=== PATIENT | female | born 1960 | race Caucasian/White ===

== ENCOUNTER → 2018-02-23 14:40 | Outpatient (CLI) | payer OTHER, MEDICAID, SELFPAY ==
[2018-02-23 15:28] LABS: Add Manual Diff / Slide Review NO; Basophils Percent Auto 0.8 % (0-2); Eosinophils Percent Auto 6.4 % (2-4); Hematocrit 40.6 % (36-46); Hemoglobin 13.8 g/dL (12.0-16.0); Lymphocytes Percent Auto 18.8 % (25-40); Mean Corpuscular Hemoglobin 29.7 PG (26-34); Mean Corpuscular Volume 87.4 fL (80-100); Monocytes Percent Auto 8.1 % (3-14); Neutrophils Absolute Auto 4300 /uL (3000-5900); Neutrophils Percent Auto 65.9 % (50-75); Platelet Count 302 X10^3/uL (150-400); Red Blood Cell Count 4.65 X10^6/uL (4.0-5.2); Red Cell Distribution Width 13.2 % (11.6-14.8); White Blood Cell Count 6.5 X10^3/uL (4.5-11.0)
[2018-02-23 16:05] LABS: Free T3, Triiodothyronine Free 3.57 pg/mL (2.77-5.27); Free T4, Direct Thyroxine 1.08 ng/dL (0.78-2.19)
[2018-02-23 16:19] LABS: Thyroid Stimulating Hormone 1.02 uIU/mL (0.47-4.68)
== END ==
PROVIDERS: Family Provider Family Medicine; PCP Family Medicine; Visit Provider Nurse Practitioner Family
DX: F32.9 Major depressive disorder, single episode, unspecified (principal); R94.6 Abnormal results of thyroid function studies
CPT/HCPCS: 36415; 84439; 84443; 84481; 85025

== ENCOUNTER → 2018-03-29 12:08 | Outpatient (CLI) | payer OTHER, MEDICAID, SELFPAY ==
[2018-03-29 14:11] LABS: Thyroid Stimulating Hormone 0.98 uIU/mL (0.47-4.68)
== END ==
PROVIDERS: Family Provider Family Medicine; PCP Family Medicine; Visit Provider Family Medicine
DX: R94.6 Abnormal results of thyroid function studies (principal)
CPT/HCPCS: 36415; 84443

== ENCOUNTER → 2018-04-25 08:35 | Outpatient (CLI) | payer OTHER, MEDICAID, SELFPAY ==
[2018-04-25 10:22] LABS: Alanine Aminotransferase 18 IU/L (9-52); Albumin 3.8 g/dL (3.5-5.0); Albumin Globulin Ratio 1.6 (1.0-2.8); Alkaline Phosphatase 70 U/L (38-126); Aspartate Aminotransferase 18 IU/L (14-36); BUN Creatinine Ratio 21.4 (6-22); Bilirubin Total 0.4 mg/dL (0.2-1.3); Blood Urea Nitrogen 15 mg/dL (7-17); Calcium 9.2 mg/dL (8.4-10.2); Carbon Dioxide 27 mmol/L (22-32); Chloride 102 mmol/L (98-107); Estimated Glomerular Filt Rate > 60.0 mL/min (>60); Globulin 2.4 g/dL (1.7-4.1); Glucose 89 mg/dL (70-100); HEMOLYSIS < 15 (0-50); Potassium 4.4 mmol/L (3.4-5.1); Sodium 138 mmol/L (137-145); Total Protein 6.2 g/dL (6.3-8.2)
== END ==
PROVIDERS: PCP Family Medicine; Visit Provider Family Medicine
DX: G43.909 Migraine, unspecified, not intractable, without status migrainosus (principal)
CPT/HCPCS: 36415; 80053

== ENCOUNTER 2018-06-11 23:47 | Emergency (ER) | payer OTHER, MEDICAID, SELFPAY ==
--- NOTE | 2018-06-11 23:51 | DI.RAD.S_ITS ---
PROCEDURE: XR CHEST 1V INDICATIONS: chest pain TECHNIQUE: One view of the chest was acquired. COMPARISON: None. FINDINGS: Surgical changes and devices: None. Lungs and pleura: No pleural effusions or pneumothorax. Lungs are clear. Mediastinum: Mediastinal contours appear normal. Heart size is normal. Bones and chest wall: No suspicious bony lesions. Overlying soft tissues appear unremarkable. IMPRESSION: No acute cardiopulmonary disease. Dictated by: Ree Berumen M.D. on 06/12/2018 at 8:04 Approved by: Ree Berumen M.D. on 06/12/2018 at 8:04
[2018-06-12] VITALS (12 sets, daily range): BP systolic 110–130; BP diastolic 59–68; PULSE 73–82; RESP 10–18; TEMP 36.7; O2SAT 95–100; BMI 30.7
--- NOTE | 2018-06-12 00:07 | ED.CHESTPAIN ---
HPI - Chest Pain General Stated Complaint: Chest pain Time Seen by Provider: 06/11/18 23:53 Source: patient and EMS Mode of arrival: EMS Limitations: no limitations History of Present Illness HPI narrative: 58-year-old nonsmoker presents with chief complaint of some episodes of chest and right shoulder pain off and on since 5:00 p.m.. She is not actively having any pain and she denies provocation, palliation of her pain. She denies associated symptoms such as dizziness, weakness or lightheadedness. She does have some type of cardiac disease and has had heart catheterization in [place] a few years ago that was unremarkable. In the end it was thought that she had some ?electrical ?problems with her heart and has been on beta blockers and calcium channel blockers for control. She denies nausea, vomiting MD complaint: chest pain Onset (ago): hour(s) Duration: intermittent Pain location: right chest Severity: mild Quality: sharp Relieving factors: nothing Exacerbating factors: nothing Treatments prior to arrival chest pain: aspirin Related Data Home Medications Medication Instructions Recorded Confirmed naproxen sodium [Aleve] 220 mg PO PRN PRN #0 07/28/17 05/31/18 fexofenadine 180 mg PO QDAY #0 11/01/17 05/31/18 albuterol sulfate HFA 90 1 puff INHALATION Q6-8H PRN 03/06/18 05/31/18 mcg/actuation aerosol inhaler inhalation Previous Rx's Medication Instructions Recorded sennosides [senna] 8.6 mg PO BID #90 tab 09/23/16 loperamide 4 mg PO QDAY PRN #60 cap 11/02/17 fluticasone 50 mcg/actuation nasal 2 spray INTRANASAL QDAY #1 bot 03/15/18 spray,suspension lisinopril 10 1 tab PO QDAY #90 tab 03/27/18 mg-hydrochlorothiazide 12.5 mg tablet omeprazole 20 mg capsule,delayed 20 mg PO Q DAY #90 cap 03/27/18 release propranolol 40 mg tablet 40 mg PO BID #60 tab 03/27/18 clonidine HCl 0.1 mg tablet 0.1 mg PO .COMPLEX #21 tab 04/11/18 bupropion HCl SR 150 mg tablet,12 150 mg PO BID #60 tab 04/24/18 hr sustained-release butorphanol tartrate 10 mg/mL 1 spray INTRANASAL Q4-6H #2.5 ml 04/24/18 nasal spray cyclobenzaprine 10 mg tablet 10 mg PO TID #90 tab 04/24/18 promethazine 25 mg tablet 25 mg PO BID #60 tab 04/24/18 budesonide 180 mcg/actuation 2 inhalation INHALATION BID #1 each 04/26/18 breath activated powder inhaler oxycodone 5 mg tablet 5 mg PO TID PRN #90 tab 05/16/18 alprazolam 0.25 mg tablet 0.25 mg PO TID PRN #75 tab 05/18/18 alprazolam 0.25 mg tablet 0.25 mg PO TID PRN #75 tab 06/01/18 alprazolam 0.25 mg tablet 0.25 mg PO TID PRN #75 tab 06/01/18 alprazolam 0.25 mg tablet 0.25 mg PO TID PRN #75 tab 06/01/18 estradiol 0.5 mg tablet 0.5 mg PO DAILY #90 tab 06/01/18 medroxyprogesterone 2.5 mg tablet 2.5 mg PO DAILY #90 tab 06/01/18 oxycodone 5 mg tablet 5 mg PO TID PRN #90 tab 06/01/18 oxycodone 5 mg tablet 5 mg PO TID PRN #90 tab 06/01/18 oxycodone 5 mg tablet 5 mg PO TID PRN #90 tab 06/01/18 verapamil ER (SR) 240 mg 240 mg PO QPM #90 tab 06/11/18 tablet,extended release Allergies Allergy/AdvReac Type Severity Reaction Status Date / Time gluten [GLUTEN] Allergy Severe severe Verified 05/31/18 16:07 stomach cramps and diahrrea adhesive Allergy Mild RASH Verified 05/31/18 16:07 cephalexin [CEPHALEXIN] Allergy Mild RASH Verified 05/31/18 16:07 latex [LATEX] Allergy Mild RASH Verified 05/31/18 16:07 ibuprofen [IBUPROFEN] Allergy Unknown STOMACH Verified 05/31/18 16:07 ACHE sumatriptan [From IMITREX] AdvReac Intermediate Rapid Verified 05/31/18 16:07 heart rate. gabapentin [GABAPENTIN] AdvReac Mild NEURO/SPEECH Verified 05/31/18 16:07 IMPAIRMENT [facility] Medical History Post menopausal syndrome (Chronic) DJD (degenerative joint disease), lumbar (Chronic) Irritable bowel syndrome (Chronic) Uncomplicated opioid dependence (Chronic) Hyperlipidemia (Chronic Unknown) Hypertension (Chronic Unknown) Constipation (Chronic Unknown) Celiac disease (Chronic ~2006) Asthma (Chronic ~2015) Depression (Chronic Unknown) Carpal tunnel syndrome on right (Chronic Unknown) Anxiety (Chronic ~1979) Generalized headaches (Chronic 2013) Migraines (Chronic 1979) Osteoporosis (Chronic Unknown) Osteopenia (Chronic Unknown) Chronic back pain (Chronic 2007) Depression (Chronic) Allergy (Chronic Unknown) Anemia (Chronic Unknown) Diverticulitis (Chronic Unknown) Scoliosis (Chronic 2006) Tachycardia (Chronic 2009) Tennis elbow (Chronic Unknown) Chickenpox (Resolved Unknown) Dysphagia (Resolved Unknown) Endometriosis (Resolved 1986) Genital warts (Resolved 1979) Knee pain, right (Resolved ~2013) Measles (Resolved Unknown) Mumps (Resolved Unknown) Nephritis (Resolved 1967) Social History Smoking Status: Never smoker alcohol intake: current (Rarely) substance use type: does not use Exam Narrative Exam Narrative: GENERAL: T 58-year-old female resting comfortably in no obvious distress HEAD: Atraumatic. Normocephalic. No temporal or scalp tenderness. EYES: Pupils equal round and reactive. Extraocular motions intact. No scleral icterus. No injection or drainage. ENT: Nose without bleeding, purulent drainage or septal hematoma. Throat without erythema, tonsillar hypertrophy or exudate. Uvula midline. Airway patent. NECK: Trachea midline. No JVD or lymphadenopathy. Supple, nontender, no meningeal signs. CARDIOVASCULAR: Regular rate and rhythm without murmurs, gallops, or rubs. No reproducible chest pain RESPIRATORY: Clear to auscultation. Breath sounds equal bilaterally. No wheezes, rales, or rhonchi. GASTROINTESTINAL: Abdomen soft, non-tender, nondistended. No hepato-splenomegaly, or palpable masses. No guarding. EXTREMITIES: No clubbing, cyanosis, or edema. No joint tenderness, effusion, or edema noted. BACK: Nontender without deformity or crepitance. No flank tenderness. NEURO: AOx3. SKIN: No rash or erythema. Initial Vital Signs Initial Vital Signs: Vital Signs Temperature 98.1 F 06/12/18 00:07 Pulse Rate 78 06/12/18 00:07 Respiratory Rate 18 06/12/18 00:07 Blood Pressure 114/66 06/12/18 00:07 Pulse Oximetry 100 06/12/18 00:07 Scores HEART Score Heart Score history: Slightly Suspicious Heart Score EKG: Normal Heart Score Age: 45-64 years old Heart Score risk factors: 1-2 risk factors Heart Score troponin: < or = to normal limit Heart Score Total: 2 Course Orders Ordered: ED Orders 06/11/18 23:51 XR chest 1V Stat EKG-12 Lead Stat 06/11/18 23:58 Complete Blood Count AUTO DIFF Stat Comprehensive Metabolic Panel Stat Lipase Stat Troponin & CK Cardiac Panel Stat 06/12/18 01:04 CT angio chest PE protocol Stat 06/12/18 02:47 EKG-12 Lead Stat 06/12/18 02:55 Troponin I Stat Sodium Chloride (Normal Saline 0.9%) 1,000 mls @ 150 mls/hr IV CONT ANNI Last Admin: 06/12/18 00:17 Dose: 150 mls/hr Nitroglycerin (Nitrostat) 0.4 mg SL [id number] PRN PRN Reason: Chest Pain Last Admin: 06/12/18 00:35 Dose: 0.4 mg Admin: 06/12/18 00:29 Dose: 0.4 mg Discontinued Medications Aspirin (Aspirin Chew) 324 mg PO NOW ONE Stop: 06/11/18 23:52 Last Admin: 06/12/18 00:57 Dose: Vital Signs - 8 hr 06/12/18 00:07 06/12/18 00:25 06/12/18 00:28 Temperature 98.1 F Pulse Rate 78 76 81 Respiratory Rate 18 11 L Blood Pressure 114/66 Blood Pressure [Left Arm] 114/66 116/68 Pulse Oximetry 100 95 06/12/18 00:29 06/12/18 00:30 06/12/18 00:34 Temperature Pulse Rate 81 82 Respiratory Rate Blood Pressure 116/68 130/66 Blood Pressure [Left Arm] 130/66 Pulse Oximetry 06/12/18 00:35 06/12/18 00:36 06/12/18 01:24 Temperature Pulse Rate 74 73 76 Respiratory Rate 10 L Blood Pressure 110/64 Blood Pressure [Left Arm] 110/64 113/60 114/65 Pulse Oximetry 97 06/12/18 03:43 06/12/18 03:44 Temperature Pulse Rate 73 77 Respiratory Rate 15 Blood Pressure 113/60 Blood Pressure [Left Arm] 118/59 L Pulse Oximetry 100 MDM - Chest Pain Differential Diagnosis Likely pneumothorax, stable angina, unstable angina pectoris, atypical chest pain, st elevation myocardial infarction, costochondritis, chest pain and biliary colic Medical Records Data Attestation: I reviewed the patient's medical records. Lab Data Attestation: I reviewed the patient's lab results. Result diagrams: 06/11/18 23:58 06/11/18 23:58 Lab Results 06/11/18 06/11/18 06/12/18 Range/Units 23:58 23:58 02:55 WBC 6.8 (4.5-11.0) X10^3/uL RBC 4.20 (4.0-5.2) X10^6/uL Hgb 12.4 (12.0-16.0) g/dL Hct 35.8 L (36-46) % MCV 85.3 (80-100) fL MCH 29.5 (26-34) PG MCHC 34.6 (30-36) % RDW 13.6 (11.6-14.8) % Plt Count 299 (150-400) X10^3/uL Neut % (Auto) 59.6 (50-75) % Lymph % (Auto) 24.6 L (25-40) % [place] % (Auto) 9.8 (3-14) % Eos % (Auto) 5.2 H (2-4) % Baso % (Auto) 0.8 (0-2) % Neut # (Auto) 4000 (3128-6665) /uL Sodium 134 L (137-145) mmol/L Potassium 4.1 (3.4-5.1) mmol/L Chloride 97 L (98-107) mmol/L Carbon Dioxide 29 (22-32) mmol/L BUN 17 (7-17) mg/dL Creatinine 0.80 (0.52-1.04) mg/dL Estimated GFR > 60.0 (>60) mL/min BUN/Creatinine Ratio 21.3 (6-22) Glucose 83 (70-100) mg/dL Calcium 9.2 (8.4-10.2) mg/dL Total Bilirubin 0.3 (0.2-1.3) mg/dL AST 16 (14-36) IU/L ALT 22 (9-52) IU/L Alkaline Phosphatase 76 (38-126) U/L Total Creatine Kinase 31 (30-135) U/L CK-MB (CK-2) TNP CK-MB (CK-2) Rel Index TNP Troponin I < 0.012 < 0.012 (0.01-0.034) ng/mL Total Protein 6.6 (6.3-8.2) g/dL Albumin 3.9 (3.5-5.0) g/dL Globulin 2.7 (1.7-4.1) g/dL Albumin/Globulin Ratio 1.4 (1.0-2.8) Lipase 33 (23-300) U/L ECG Data Attestation: I personally reviewed and interpreted this ECG as follows: Prior ECG tracings: not available for review Interpretation: EKG is normal sinus rhythm and free of any signs of ischemia or ectopy. EKG 2., unchanged MDM Narrative Medical decision making narrative: 1. [place] considered but EKG is remain normal, patient remains asymptomatic, troponins x2 are unchanged, heart score of to dictates outpatient workup appropriate 2. PE/dissection considered but imaging is normal 3. PTX considered but imaging is normal 4. Biliary disease considered, but not significant RUQ pain and labs are not indicative of this disease process Discharge Plan Departure Patient Disposition: Home Clinical Impression: Atypical chest pain Instructions: DI for Atypical Chest Pain Activity Restrictions/Additional Instructions: *You have been diagnosed with [ atypical chest pain ] *What to do: *Take medications as directed *Follow up with your primary care provider in 2-3 days, call for an appointment. Let them know you were seen in the Emergency Department and that we ask that you be seen in follow up *Return to ER if you should have any new, worsening or concerning symptoms Prescriptions: No Action butorphanol tartrate 10 mg/mL spray,non-aerosol 1 spray Intranasal Q4-6H Qty: 2.5 RF: 5 promethazine 25 mg tablet 25 mg PO BID Qty: 60 RF: 5 cyclobenzaprine 10 mg tablet 10 mg PO TID Qty: 90 RF: 5 bupropion HCl 150 mg tablet extended release 12 hr 150 mg PO BID Qty: 60 RF: 5 alprazolam 0.25 mg tablet 0.25 mg PO TID PRN (Reason: anxiety) Qty: 75 RF: 0 alprazolam 0.25 mg tablet 0.25 mg PO TID PRN (Reason: anxiety) Qty: 75 RF: 0 alprazolam 0.25 mg tablet 0.25 mg PO TID PRN (Reason: anxiety) Qty: 75 RF: 0 oxycodone 5 mg tablet 5 mg PO TID PRN (Reason: pain) Qty: 90 RF: 0 oxycodone 5 mg tablet 5 mg PO TID PRN (Reason: pain) Qty: 90 RF: 0 oxycodone 5 mg tablet 5 mg PO TID PRN (Reason: pain) Qty: 90 RF: 0 estradiol 0.5 mg tablet 0.5 mg PO DAILY Qty: 90 RF: 3 medroxyprogesterone 2.5 mg tablet 2.5 mg PO DAILY Qty: 90 RF: 3 albuterol sulfate [Ventolin HFA] 90 mcg/actuation HFA aerosol inhaler 1 puff INHALATION Q6-8H PRNRF: 0 sennosides [senna] 8.6 MG tablet 8.6 mg PO BID Qty: 90 RF: 0 naproxen sodium [Aleve] 220 MG tablet 220 mg PO PRN PRNQty: 0 RF: 0 fexofenadine 180 MG tablet 180 mg PO QDAY Qty: 0 RF: 0 loperamide 2 MG capsule 4 mg PO QDAY PRNQty: 60 RF: 3 fluticasone [Flonase Allergy Relief] 50 mcg/actuation spray,suspension 2 spray Intranasal QDAY Qty: 1 RF: 1 propranolol 40 mg tablet 40 mg PO BID Qty: 60 RF: 3 lisinopril-hydrochlorothiazide [Zestoretic] 10-12.5 mg tablet 1 tab PO QDAY Qty: 90 RF: 1 omeprazole 20 mg capsule,delayed release(DR/EC) 20 mg PO Q DAY Qty: 90 RF: 0 clonidine HCl 0.1 mg tablet 0.1 mg PO .COMPLEX Qty: 21 RF: 0 budesonide [Pulmicort Flexhaler] 180 mcg/actuation aerosol powdr breath activated 2 inhalation INHALATION BID Qty: 1 RF: 5 oxycodone 5 mg tablet 5 mg PO TID PRN (Reason: pain) Qty: 90 RF: 0 alprazolam 0.25 mg tablet 0.25 mg PO TID PRN (Reason: anxiety) Qty: 75 RF: 0 verapamil 240 mg tablet extended release 240 mg PO QPM Qty: 90 RF: 0 Referrals: Xena Charles DO [Primary Care Provider] -
[2018-06-12 00:14] LABS: Add Manual Diff / Slide Review NO; Basophils Percent Auto 0.8 % (0-2); Eosinophils Percent Auto 5.2 % (2-4); Hematocrit 35.8 % (36-46); Hemoglobin 12.4 g/dL (12.0-16.0); Lymphocytes Percent Auto 24.6 % (25-40); Mean Corpuscular HGB Conc 34.6 % (30-36); Mean Corpuscular Hemoglobin 29.5 PG (26-34); Mean Corpuscular Volume 85.3 fL (80-100); Monocytes Percent Auto 9.8 % (3-14); Neutrophils Absolute Auto 4000 /uL (3000-5900); Neutrophils Percent Auto 59.6 % (50-75); Platelet Count 299 X10^3/uL (150-400); Red Cell Distribution Width 13.6 % (11.6-14.8); White Blood Cell Count 6.8 X10^3/uL (4.5-11.0)
[2018-06-12] MEDS: SODIUM CHLORIDE 0.9% 1,000 ML 150 ML IV (00:17)
[2018-06-12] MEDS: NITROGLYCERIN 0.4 MG SL TAB SL ×2 (00:29→00:35)
[2018-06-12 00:34] LABS: Alanine Aminotransferase 22 IU/L (9-52); Albumin 3.9 g/dL (3.5-5.0); Albumin Globulin Ratio 1.4 (1.0-2.8); Alkaline Phosphatase 76 U/L (38-126); Aspartate Aminotransferase 16 IU/L (14-36); BUN Creatinine Ratio 21.3 (6-22); Bilirubin Total 0.3 mg/dL (0.2-1.3); Blood Urea Nitrogen 17 mg/dL (7-17); Calcium 9.2 mg/dL (8.4-10.2); Carbon Dioxide 29 mmol/L (22-32); Chloride 97 mmol/L (98-107); Creatine Kinase 31 U/L (30-135); Estimated Glomerular Filt Rate > 60.0 mL/min (>60); Globulin 2.7 g/dL (1.7-4.1); Glucose 83 mg/dL (70-100); HEMOLYSIS < 15 (0-50); Lipase 33 U/L (23-300); Potassium 4.1 mmol/L (3.4-5.1); Sodium 134 mmol/L (137-145); Total Protein 6.6 g/dL (6.3-8.2)
[2018-06-12 00:46] LABS: Troponin I < 0.012 ng/mL (0.01-0.034)
--- NOTE | 2018-06-12 01:04 | DI.CT.S_ITS ---
PROCEDURE: CT ANGIO CHEST PE PROTOCOL INDICATIONS: Chest pain, shortness of breath TECHNIQUE: After the administration of intravenous contrast, 2 mm thick sections acquired from the pulmonary apices to the posterior costophrenic angles. 3-dimensional maximum intensity projection (MIP) coronal and sagittal reformats were then acquired through the thorax. For radiation dose reduction, the following was used: automated exposure control, adjustment of mA and/or kV according to patient size. COMPARISON: [facility], CR, XR CHEST 1V, 06/12/2018, 0:06. FINDINGS: Image quality: Excellent. Pulmonary arteries: Pulmonary arteries are normal in size, and demonstrate no intraluminal filling defects to suggest central pulmonary embolism. Lungs and pleura: Lungs are clear. No pleural effusions or pneumothorax. Central and peripheral airways are patent. Mediastinum: Heart size is normal, without pericardial effusion. No mediastinal or hilar adenopathy. Thoracic aorta is normal in caliber and enhancement. Esophagus is normal in caliber, without hiatal hernia. Bones and chest wall: No suspicious bony lesions. Ribs and thoracic spine appear intact throughout. Thyroid gland is normal. No axillary or supraclavicular adenopathy. Abdomen: Visualized upper abdominal solid organs appear normal in the early arterial phase of enhancement. IMPRESSION: No evidence for pulmonary embolism. No significant discrepancy with the silk finisher radiology preliminary report. Dictated by: Ree Berumen M.D. on 06/12/2018 at 7:26 Approved by: Ree Berumen M.D. on 06/12/2018 at 7:28
[2018-06-12 03:26] LABS: Troponin I < 0.012 ng/mL (0.01-0.034)
== END 2018-06-12 04:41 | disposition home or self-care (01) ==
PROVIDERS: Emergency Provider Emergency Medicine; Family Provider Family Medicine; PCP Family Medicine
DX: R07.89 Other chest pain (principal)
CPT/HCPCS: 36415; 71045; 71275; 80053; 82550; 82553; 83690; 84484; 85025; 93005; 96360; 96361; 99284; 99285; Q9967

== ENCOUNTER → 2020-11-17 12:53 | Outpatient (CLI) | payer OTHER, MEDICAID, SELFPAY ==
[2020-11-17 16:23] LABS: Free T3, Triiodothyronine Free 3.26 pg/mL (2.77-5.27); Free T4, Direct Thyroxine 1.01 ng/dL (0.78-2.19)
[2020-11-17 16:37] LABS: Thyroid Stimulating Hormone 1.26 uIU/mL (0.47-4.68)
== END ==
PROVIDERS: PCP Family Medicine; Referring Provider Family Medicine; Visit Provider Family Medicine
DX: R63.5 Abnormal weight gain (principal)
CPT/HCPCS: 36415; 84439; 84443; 84481

== ENCOUNTER → 2020-11-24 13:11 | Outpatient (CLI) | payer OTHER, MEDICAID, SELFPAY ==
--- NOTE | 2020-11-24 | DI.RAD.S_ITS ---
PROCEDURE: XR CERVICAL SPINE 2V OR 3V INDICATIONS: Other chronic pain TECHNIQUE: 3 view(s) of the cervical spine were acquired. COMPARISON: [facility], , CERVICAL SPINE 2 OR 3 VIEWS, 04/21/2016, 12:13. FINDINGS: Bones: No fractures or dislocations to the T1 level. The lateral masses of C1 appear intact on the odontoid view. No suspicious bony lesions. There is mild degenerative disc disease at C5-C6. Scattered facet arthropathy bilaterally, most pronounced at C5-C6 and C6-C7. Soft tissues: No prevertebral soft tissue swelling. IMPRESSION: 1. Degenerative disc and facet disease disease in cervical spine as described. Dictated by: Ree Berumen M.D. on 11/24/2020 at 14:47 Approved by: Ree Berumen M.D. on 11/24/2020 at 14:49
--- NOTE | 2020-11-24 | DI.RAD.S_ITS ---
PROCEDURE: XR THORACIC SPINE 3V INDICATIONS: Other chronic pain TECHNIQUE: 3 views of the thoracic spine were acquired. COMPARISON: [facility], , -SPINE 2-3 VIEWS, 01/08/2018, 15:50. FINDINGS: Bones: No fractures or dislocations. No suspicious bony lesions. 12 pairs of ribs are noted, and appear intact where visualized. Mild scoliosis. There is degenerative disc disease in lumbar spine, [id number] at T11-T12, and [id number] at other levels. Note is made of spinal fusion in the lower lumbar spine. Soft tissues: No paravertebral stripe thickening. IMPRESSION: 1. Mnrpinfg-ql-gdogwk degenerative disc disease in cervical spine. Dictated by: Ree Berumen M.D. on 11/24/2020 at 14:38 Approved by: Ree Berumen M.D. on 11/24/2020 at 14:40
--- NOTE | 2020-11-24 | DI.RAD.S_ITS ---
PROCEDURE: XR KNEE RT 3V INDICATIONS: Other chronic pain TECHNIQUE: 3 views of the knee were acquired. COMPARISON: [facility], , KNEE 3V RIGHT, 07/28/2017, 14:43. FINDINGS: Bones: Right knee total arthroplasty with prosthesis in anatomic alignment. No fractures or dislocations. No suspicious bony lesions. Soft tissues: Moderate joint effusion. No suspicious soft tissue calcifications. IMPRESSION: 1. Right knee arthroplasty with intact prosthesis. 2. Moderate knee joint effusion. Dictated by: Ree Berumen M.D. on 11/24/2020 at 14:40 Approved by: Ree Berumen M.D. on 11/24/2020 at 14:47
== END ==
PROVIDERS: PCP Family Medicine; Referring Provider Family Medicine; Visit Provider Family Medicine
DX: M25.561 Pain in right knee (principal); M25.361 Other instability, right knee; M25.461 Effusion, right knee; M51.34 Other intervertebral disc degeneration, thoracic region; M50.322 Other cervical disc degeneration at C5-C6 level; M47.812 Spondylosis without myelopathy or radiculopathy, cervical region; M51.36 Other intervertebral disc degeneration, lumbar region; G89.29 Other chronic pain; Z96.651 Presence of right artificial knee joint; Z98.1 Arthrodesis status
CPT/HCPCS: 72040; 72072; 73562

== ENCOUNTER 2021-02-05 11:15 | Outpatient (RCR) | payer OTHER, MEDICAID, SELFPAY ==
--- NOTE | 2020-10-26 16:45 | PT.OIE ---
Current Diagnoses Stiffness of other specified joint, not elsewhere classified (10/26/20) Spinal stenosis, lumbar region with neurogenic claudication (10/26/20) Encounter for other orthopedic aftercare (10/26/20) Arthrodesis status (10/26/20) Past Medical History (Last Reviewed 06/13/18 @ 14:22 by Xena Charles DO) Allergy (Unknown) Anemia (Unknown) Anxiety (~1979) Asthma (~2014) Carpal tunnel syndrome on right (Unknown) Celiac disease (~2005) Chickenpox (Unknown) Chronic back pain (2007) Constipation (Unknown) Depression Depression (Unknown) Diverticulitis (Unknown) DJD (degenerative joint disease), lumbar Dysphagia (Unknown) Endometriosis (1986) Generalized headaches (2013) Genital warts (1979) Hyperlipidemia (Unknown) Hypertension (Unknown) Irritable bowel syndrome Knee pain, right (~2013) Measles (Unknown) Migraines (1979) Mumps (Unknown) Nephritis (1967) Osteopenia (Unknown) Osteoporosis (Unknown) Post menopausal syndrome Scoliosis (2006) Tachycardia (2009) Tennis elbow (Unknown) Uncomplicated opioid dependence Past Surgical History (Last Reviewed 06/13/18 @ 14:22 by Xena Charles DO) Hx of parotidectomy (1984) S/P lumbar fusion Status post appendectomy Status post biopsy of kidney (1967) Status post delivery Visit Care Team Role Provider Type Puma Mendez MD Primary Care Provider Non-Staff Specialty: Family Practice Address: [address] [place] [address], [address], [place], [address] Email: Sherine Santos PA-C Attending Provider Non-Staff Referring Provider Specialty: General Surgery Address: [address] [place] [address] [id number], [place], [address] Email: Physical Therapy Initial Evaluation PT-OP-A Visit Information Start: 10/26/20 17:45 Freq: Status: Active Protocol: Document 10/26/20 16:10 DCW (Rec: 10/26/20 17:55 DCW [id number]) Out-Patient Physical Therapy Visit Information Visit Information Visit Type Initial Evaluation Visit Start Time 16:10 Visit Stop Time 16:45 Total Visit Minutes 35 Visit Number 1 Number of SALES OPERATIONS MANAGER Visits 0 Evaluation Information Evaluation Date 10/26/20 PT-OP-B Current Condition Start: 10/26/20 17:45 Freq: Status: Active Protocol: Document 10/26/20 16:10 DCW (Rec: 10/26/20 17:55 DCW [id number]) Current Condition History of Current Condition Onset Date 07/22/20 Current Complaints s/p L3-4 Laminectomy/ decompression and posterolateral fusion History of Current Condition Pt is a 60 year old female presenting three months s/p L3 -4 laminectomy/decompression and posterolateral fusion. This is also 13 years s/p an L4-S1 lami/fusion. Pt notes her recovery so far is much better than her previous lami . Pt was previously seen at this clinic five years ago after a knee injury. 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 Following x-rays and a CT scan, pt was in the process of obtaining an MRI when she returned to her surgeon from 2007, who obtained an MRI and decided to go forward with her surgery. Since surgery, pt has been feeling better overall, but still has limited activity tolerance, feels her legs and core are weak, and she cannot sit or stand for any extended period of time. 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 PT-OP-C Subjective Start: 10/26/20 17:45 Freq: Status: Active Protocol: Document 10/26/20 16:10 DCW (Rec: 10/27/20 09:39 DCW [id number]) OP-PT Subjective Patient Comments Patient Comments I really like to be able to get back to gardening, or even just walk around more ant take off some of this quarantine weight. Patient Reported Progress Improving Patient Questionnaires Oswestry Low Back Index Oswestry Score 27/50 = 54% Oswestry Impairment 40 to 59% Impaired (Score 40- 59) PT-OP-E Functional Tests Start: 10/26/20 17:45 Freq: Status: Active Protocol: Document 10/26/20 16:10 DCW (Rec: 10/27/20 09:39 DCW [id number]) Functional Tests 6 Minute Walk Test Distance 966' Device Used none Comments fatigue/pain after two minutes PT-OP-K Range of Motion Start: 10/26/20 17:45 Freq: Status: Active Protocol: Document 10/26/20 16:10 DCW (Rec: 10/27/20 09:41 DCW [id number]) Lumbar Spine Range of Motion Lumbar Spine Active Degrees Testing Position Standing Flexion 20 Extension 0 Lateral Flexion Left 52 Lateral Flexion Right 50 Comments Lateral flexion measured in cm from floor to finger-tips PT-OP-M Strength Start: 10/26/20 17:45 Freq: Status: Active Protocol: Document 10/26/20 16:10 DCW (Rec: 10/27/20 09:41 DCW [id number]) Hip Strength Hip Manual Muscle Testing Right Flexion (L2) 3+ Fair+ Extension (S1) 4 Good Abduction 4 Good Adduction 4+ Good+ External Rotation 4 Good Internal Rotation 4+ Good+ Left Flexion (L2) 3+ Fair+ Extension (S1) 4 Good Abduction 4 Good Adduction 4+ Good+ External Rotation 4- Good- Internal Rotation 4 Good Knee Strength Knee Manual Muscle Testing Right Flexion (S2) 4 Good Extension (L3) 4 Good Left Flexion (S2) 4 Good Extension (L3) 4 Good PT-OP-T Assessment and Plan Start: 10/26/20 17:45 Freq: Status: Active Protocol: Document 10/26/20 16:10 DCW (Rec: 10/27/20 11:43 DCW [id number]) Physical Therapy Assessment Rehab Potential Rehabilitation Potential Excellent Evaluation Complexity Number of Personal Factors/Comorbidities 1-2 Number of Body Systems Impaired 1-2 Clinical Presentation at Evaluation Stable Impairments Impairments Activity Tolerance,Functional Activities,Functional Mobility ,Pain,ROM,Soft Tissue Mobility ,Tone Goals Three Impairment Pt unable to visit her son due to low tolerance with time seated in car Snf Goal (LTG) Pt to tolerate sitting in car for 90 minutes at a time with no increase in pain to enable her to visit her son. LTG Duration 12/25/20 Two Impairment Pt poor standing and walking tolerance limits her ability to walk Snf Goal (LTG) Pt to tolerate walking the two mile [place] without increased pain LTG Duration 12/25/20 One Impairment Pt does not have an appropriate home exercise program Short Term Goal (STG) Pt to be independent and compliant with an appropriate HEP STG Duration 11/24/20 Assessment Summary Assessment Pt presents to skilled therapy three months s/p L3-4 laminectomy and fusion. Pt overall doing well, but demonstrates decreased tolerance to standing, walking , or sitting for extended periods of time, shows hip and knee weakness bilaterally, significant restriction of lumbar ROM, and fatigue/pain during 6MWT. Pt should benefit from skilled therapy focusing on LE strengthening, improved activity tolerance, and gentle improvement to ROM/ lumbar mobility as tolerated, however pt does understand that with her recent L3-4 fusion, combines with her prior L4-S1 fusion, there will be limitations to her ROM. Physical Therapy Plan Frequency and Duration Frequency of Treatment 2x/Week Duration of Treatment Two months Plan of Care Start Date 10/26/20 Plan of Care End Date 12/24/20 Therapeutic Interventions Therapeutic Interventions Home Exercise Program,Manual Therapy,Neuromuscular Re- education,Patient/Caregiver Education,Self-Care/Home Management,Soft Tissue Mobilization,Therapeutic Activities,Therapeutic Exercises Modalities Cold Pack/Ice Massage,Electric Stimulation,Hot Packs, Ultrasound Next Visit Focus/Plan Next Note Type Treatment Note Next Visit Plan LE strengthening, increasing activity [place]
--- NOTE | 2020-10-27 11:44 | PT.OPPOC ---
Physical, Occupational & Speech Therapy At [facility] Current Diagnoses Stiffness of other specified joint, not elsewhere classified (10/26/20) Spinal stenosis, lumbar region with neurogenic claudication (10/26/20) Encounter for other orthopedic aftercare (10/26/20) Arthrodesis status (10/26/20) Visit Care Team Role Provider Type Puma Mendez MD Primary Care Provider Non-Staff Specialty: Family Practice Address: [address], [address], [place], [address] Email: Sherine Santos PA-C Attending Provider Non-Staff Referring Provider Specialty: General Surgery Address: [facility] Anitra Levinemarcial [facility] [address], [place], [address] Email: Plan Of Care PT-OP-T Assessment and Plan Start: 10/26/20 17:45 Freq: Status: Active Protocol: Document 10/26/20 16:10 DCW (Rec: 10/27/20 11:43 DCW [id number]) Physical Therapy Assessment Rehab Potential Rehabilitation Potential Excellent Evaluation Complexity Number of Personal Factors/Comorbidities 1-2 Number of Body Systems Impaired 1-2 Clinical Presentation at Evaluation Stable Impairments Impairments Activity Tolerance,Functional Activities,Functional Mobility ,Pain,ROM,Soft Tissue Mobility ,Tone Goals Three Impairment Pt unable to visit her son due to low tolerance with time seated in car Longterm Goal (LTG) Pt to tolerate sitting in car for 90 minutes at a time with no increase in pain to enable her to visit her son. LTG Duration 12/25/20 Two Impairment Pt poor standing and walking tolerance limits her ability to walk Insurance Examining Clerk Goal (LTG) Pt to tolerate walking the two mile [employer] loop without increased pain LTG Duration 12/25/20 One Impairment Pt does not have an appropriate home exercise program Short Term Goal (STG) Pt to be independent and compliant with an appropriate HEP STG Duration 11/24/20 Assessment Summary Assessment Pt presents to skilled therapy three months s/p L3-4 laminectomy and fusion. Pt overall doing well, but demonstrates decreased tolerance to standing, walking , or sitting for extended periods of time, shows hip and knee weakness bilaterally, significant restriction of lumbar ROM, and fatigue/pain during 6MWT. Pt should benefit from skilled therapy focusing on LE strengthening, improved activity tolerance, and gentle improvement to ROM/ lumbar mobility as tolerated, however pt does understand that with her recent L3-4 fusion, combines with her prior L4-S1 fusion, there will be limitations to her ROM. Physical Therapy Plan Frequency and Duration Frequency of Treatment 2x/Week Duration of Treatment Two months Plan of Care Start Date 10/26/20 Plan of Care End Date 12/24/20 Therapeutic Interventions Therapeutic Interventions Home Exercise Program,Manual Therapy,Neuromuscular Re- education,Patient/Caregiver Education,Self-Care/Home Management,Soft Tissue Mobilization,Therapeutic Activities,Therapeutic Exercises Modalities Cold Pack/Ice Massage,Electric Stimulation,Hot Packs, Ultrasound Next Visit Focus/Plan Next Note Type Treatment Note Next Visit Plan LE strengthening, increasing activity tolerance Plan of Care Dates Plan of Care Start Date 10/26/20 Plan of Care End Date 12/24/20 Electronically Signed by: Christiano Pabon, PT 10/27/20 1772 Please Sign and Return: I have reviewed this Plan of Care and certify that the skilled therapy services above are required to meet the patient?s needs. Physician Signature Date Printed Name and Credentials Clinical Instructor Signature Printed Name and Credentials
--- NOTE | 2020-10-29 09:04 | PT-OP ANOTE ---
Pt cancelled same day appt due to migraine.
--- NOTE | 2020-11-03 10:32 | PT.OTN ---
Current Diagnoses Stiffness of other specified joint, not elsewhere classified (11/03/20) Spinal stenosis, lumbar region with neurogenic claudication (11/03/20) Encounter for other orthopedic aftercare (11/03/20) Arthrodesis status (11/03/20) Physical Therapy Treatment Note PT-OP-A Visit Information Start: 10/26/20 17:45 Freq: Status: Active Protocol: Document 11/03/20 09:48 SP (Rec: 11/03/20 11:27 SP [id number]) Out-Patient Physical Therapy Visit Information Visit Information Visit Type Treatment Note Visit Note Pt 3 min late for appt. CAM Meier attended tx, observation only. Visit Start Time 09:48 Visit Stop Time 10:32 Total Visit Minutes 44 Visit Number 2 Number of LOCKSTITCH FRONT MAKER Visits 1 PT-OP-B Current Condition Start: 10/26/20 17:45 Freq: Status: Active Protocol: Document 10/26/20 16:10 DCW (Rec: 10/26/20 17:55 DCW [id number]) Current Condition History of Current Condition Onset Date 07/22/20 Current Complaints s/p L3-4 Laminectomy/ decompression and posterolateral fusion History of Current Condition Pt is a 60 year old female presenting three months s/p L3 -4 laminectomy/decompression and posterolateral fusion. This is also 13 years s/p an L4-S1 lami/fusion. Pt notes her recovery so far is much better than her previous lami . Pt was previously seen at this clinic five years ago after a knee injury. 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 Following x-rays and a CT scan, pt was in the process of obtaining an MRI when she returned to her surgeon from 2007, who obtained an MRI and decided to go forward with her surgery. Since surgery, pt has been feeling better overall, but still has limited activity tolerance, feels her legs and core are weak, and she cannot sit or stand for any extended period of time. 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 PT-OP-C Subjective Start: 10/26/20 17:45 Freq: Status: Active Protocol: Document 11/03/20 09:48 SP (Rec: 11/03/20 11:27 SP [id number]) OP-PT Subjective Patient Comments Patient Comments Pt reports sustained sitting and standing increases her LBP . Lately whole R knee has been painful 5/10 enough of annoyance but not able to do activities. PT-OP-E Functional Tests Start: 10/26/20 17:45 Freq: Status: Active Protocol: Document 10/26/20 16:10 DCW (Rec: 10/27/20 09:39 DCW [id number]) Functional Tests 6 Minute Walk Test Distance 966' Device Used none Comments fatigue/pain after two minutes PT-OP-K Range of Motion Start: 10/26/20 17:45 Freq: Status: Active Protocol: Document 10/26/20 16:10 DCW (Rec: 10/27/20 09:41 DCW [id number]) Lumbar Spine Range of Motion Lumbar Spine Active Degrees Testing Position Standing Flexion 20 Extension 0 Lateral Flexion Left 52 Lateral Flexion Right 50 Comments Lateral flexion measured in cm from floor to finger-tips PT-OP-M Strength Start: 10/26/20 17:45 Freq: Status: Active Protocol: Document 10/26/20 16:10 DCW (Rec: 10/27/20 09:41 DCW [id number]) Hip Strength Hip Manual Muscle Testing Right Flexion (L2) 3+ Fair+ Extension (S1) 4 Good Abduction 4 Good Adduction 4+ Good+ External Rotation 4 Good Internal Rotation 4+ Good+ Left Flexion (L2) 3+ Fair+ Extension (S1) 4 Good Abduction 4 Good Adduction 4+ Good+ External Rotation 4- Good- Internal Rotation 4 Good Knee Strength Knee Manual Muscle Testing Right Flexion (S2) 4 Good Extension (L3) 4 Good Left Flexion (S2) 4 Good Extension (L3) 4 Good PT-OP-Q Treatments Start: 10/26/20 17:45 Freq: Status: Active Protocol: Document 11/03/20 09:48 SP (Rec: 11/03/20 11:27 SP [id number]) Therapeutic Exercises Supine Exercises LTR Supine Exercise Name single leg felt better than double together Side bilateral Equipment Used towel to assist LE cross over Reps/Minutes 30 sec x2 Comments range to tolerance DLFO w/ TB Side bilateral Resistance L1 band Reps/Minutes x10 Comments cued slow pacing control for LS stability and TA awareness core march Supine Exercise Name single alternating Reps/Minutes x10 Comments cued slow pacing control for LS stability and TA awareness Pelvic tilt, TA instruction Reps/Minutes 10 sec hold x10 Comments cued PPT awareness Sitting Exercises trunk flexion stretch Sitting Exercise Name QL stretch (foward and diagonal) Side bilateral Reps/Minutes 30 x3 Comments cued awareness of not rounding back hamstring stretch Side bilateral Reps/Minutes 30 x2 Comments cued straight back hip hinge awareness Standing Exercises resisted shld ext Standing Exercise Name split stance Side bilateral Resistance L1 band Reps/Minutes x10 Comments cued soft knee, neutral pelvis , tall posture, scap depress stab resisted row Side bilateral Resistance L1 band Reps/Minutes x10 Comments cued soft knee, neutral pelvis , tall posture, scap depress stab PT-OP-T Assessment and Plan Start: 10/26/20 17:45 Freq: Status: Active Protocol: Document 11/03/20 09:48 SP (Rec: 11/03/20 11:27 SP [id number]) Physical Therapy Assessment Goals Three Impairment Pt unable to visit her son due to low tolerance with time seated in car Mcfp Goal (LTG) Pt to tolerate sitting in car for 90 minutes at a time with no increase in pain to enable her to visit her son. LTG Duration 12/25/20 Two Impairment Pt poor standing and walking tolerance limits her ability to walk Salary And Wage Administrator Goal (LTG) Pt to tolerate walking the two mile [place] loop without increased pain LTG Duration 12/25/20 One Impairment Pt does not have an appropriate home exercise program Short Term Goal (STG) Pt to be independent and compliant with an appropriate HEP STG Duration 11/24/20 Assessment Summary Assessment Tx focused on initiating HEP: TA facilitation and flexibility to allow decrease LBP. Required cuing for PPT/TA facilitation and postural/ pelvic alignment throughout tx with good self awareness and improved self corrections. Pt reported no pain end of tx. Physical Therapy Plan Frequency and Duration Frequency of Treatment 2x/Week Duration of Treatment Two months Plan of Care Start Date 10/26/20 Plan of Care End Date 12/24/20 Therapeutic Interventions Therapeutic Interventions Home Exercise Program,Manual Therapy,Neuromuscular Re- education,Patient/Caregiver Education,Self-Care/Home Management,Soft Tissue Mobilization,Therapeutic Activities,Therapeutic Exercises Modalities Cold Pack/Ice Massage,Electric Stimulation,Hot Packs, Ultrasound Next Visit Focus/Plan Next Note Type Treatment Note Next Visit Plan Assess response to initated HEP: flexibility, core and LE strengthening last tx. Next tx add ball roll at wall: Low back/glut. Continue per PT POC: core and Le strengthening increasing activity toelrance
--- NOTE | 2020-11-05 09:02 | PT.OTN ---
Current Diagnoses Stiffness of other specified joint, not elsewhere classified (11/05/20) Spinal stenosis, lumbar region with neurogenic claudication (11/05/20) Encounter for other orthopedic aftercare (11/05/20) Arthrodesis status (11/05/20) Physical Therapy Treatment Note PT-OP-A Visit Information Start: 10/26/20 17:45 Freq: Status: Active Protocol: Document 11/05/20 08:18 LD (Rec: 11/05/20 12:12 LD [id number]) Out-Patient Physical Therapy Visit Information Visit Information Visit Type Treatment Note Visit Note SPTA Renea co led tx w/ ADOBE BLOCK MAKER Veronika. Visit Start Time 08:18 Visit Stop Time 09:02 Total Visit Minutes 44 Visit Number 3 Number of ADOBE BLOCK MAKER Visits 2 Evaluation Information Evaluation Date 10/26/20 PT-OP-B Current Condition Start: 10/26/20 17:45 Freq: Status: Active Protocol: Document 10/26/20 16:10 DCW (Rec: 10/26/20 17:55 DCW [id number]) Current Condition History of Current Condition Onset Date 07/22/20 Current Complaints s/p L3-4 Laminectomy/ decompression and posterolateral fusion History of Current Condition Pt is a 60 year old female presenting three months s/p L3 -4 laminectomy/decompression and posterolateral fusion. This is also 13 years s/p an L4-S1 lami/fusion. Pt notes her recovery so far is much better than her previous lami . Pt was previously seen at this clinic five years ago after a knee injury. 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 Following x-rays and a CT scan, pt was in the process of obtaining an MRI when she returned to her surgeon from 2007, who obtained an MRI and decided to go forward with her surgery. Since surgery, pt has been feeling better overall, but still has limited activity tolerance, feels her legs and core are weak, and she cannot sit or stand for any extended period of time. 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 PT-OP-C Subjective Start: 10/26/20 17:45 Freq: Status: Active Protocol: Document 11/05/20 08:18 LD (Rec: 11/05/20 12:12 LD [id number]) OP-PT Subjective Patient Comments Patient Comments Pt reports increasing pain in her R knee, deep to joints and is using SPC prior to tx today. Also stated was not able to do HEP at home, went grocery shopping after last tx and forgot how to perform them at home. PT-OP-E Functional Tests Start: 10/26/20 17:45 Freq: Status: Active Protocol: Document 10/26/20 16:10 DCW (Rec: 10/27/20 09:39 DCW [id number]) Functional Tests 6 Minute Walk Test Distance 966' Device Used none Comments fatigue/pain after two minutes PT-OP-K Range of Motion Start: 10/26/20 17:45 Freq: Status: Active Protocol: Document 10/26/20 16:10 DCW (Rec: 10/27/20 09:41 DCW [id number]) Lumbar Spine Range of Motion Lumbar Spine Active Degrees Testing Position Standing Flexion 20 Extension 0 Lateral Flexion Left 52 Lateral Flexion Right 50 Comments Lateral flexion measured in cm from floor to finger-tips PT-OP-M Strength Start: 10/26/20 17:45 Freq: Status: Active Protocol: Document 10/26/20 16:10 DCW (Rec: 10/27/20 09:41 DCW [id number]) Hip Strength Hip Manual Muscle Testing Right Flexion (L2) 3+ Fair+ Extension (S1) 4 Good Abduction 4 Good Adduction 4+ Good+ External Rotation 4 Good Internal Rotation 4+ Good+ Left Flexion (L2) 3+ Fair+ Extension (S1) 4 Good Abduction 4 Good Adduction 4+ Good+ External Rotation 4- Good- Internal Rotation 4 Good Knee Strength Knee Manual Muscle Testing Right Flexion (S2) 4 Good Extension (L3) 4 Good Left Flexion (S2) 4 Good Extension (L3) 4 Good PT-OP-Q Treatments Start: 10/26/20 17:45 Freq: Status: Active Protocol: Document 11/05/20 08:18 LD (Rec: 11/05/20 12:12 LD [id number]) Therapeutic Exercises Supine Exercises LTR Supine Exercise Name single leg felt better than double together Side bilateral Equipment Used towel to assist LE cross over Reps/Minutes 30 sec x2 Comments range to tolerance DLFO w/ TB Supine Exercise Name good control w/ self correction. Side bilateral Resistance L1 band Reps/Minutes x10 Comments cued slow pacing control for LS stability and TA awareness core march Supine Exercise Name single alternating Reps/Minutes x10 Comments cued slow pacing control for LS stability and TA awareness Pelvic tilt, TA instruction Reps/Minutes 10 sec hold x10 Comments cued PPT awareness Sitting Exercises trunk flexion stretch Sitting Exercise Name QL stretch (foward and diagonal) Side bilateral Reps/Minutes 30 x3 Comments cued awareness of not rounding back hamstring stretch Side bilateral Reps/Minutes 30 x2 Comments cued straight back hip hinge awareness Standing Exercises Side stepping Side bilateral Reps/Minutes 2 laps Comments cued upright posture, neutral pelvic alignment resisted shld ext Standing Exercise Name split stance, w/ R knee forward to maintain neutral pelvic alignment. Side bilateral Resistance L1 band Reps/Minutes x10 Comments cued soft knee, neutral pelvis , tall posture, scap depress stab resisted row Side bilateral Resistance L1 band Reps/Minutes x10 Comments cued soft knee, neutral pelvis , tall posture, scap depress stab Manual Therapy Treatment Taping R knee Body Location R knee Treatment Focus decompression of patella, pain relief Type of Tape Kinesio Tape Skin Inspection normal, intact Comments C tape on lateral and medial side to decrease pain. PT-OP-T Assessment and Plan Start: 10/26/20 17:45 Freq: Status: Active Protocol: Document 11/05/20 08:18 LD (Rec: 11/05/20 12:12 LD [id number]) Physical Therapy Assessment Goals Three Impairment Pt unable to visit her son due to low tolerance with time seated in car Band Shover Goal (LTG) Pt to tolerate sitting in car for 90 minutes at a time with no increase in pain to enable her to visit her son. LTG Duration 12/25/20 Two Impairment Pt poor standing and walking tolerance limits her ability to walk Residential Goal (LTG) Pt to tolerate walking the two mile [employer] loop without increased pain LTG Duration 12/25/20 One Impairment Pt does not have an appropriate home exercise program Short Term Goal (STG) Pt to be independent and compliant with an appropriate HEP STG Duration 11/24/20 Assessment Summary Assessment Tx focused on reviewing HEP. Pt arrived with a limp due to increasing R knee pain. Applied K taping on R knee to assess w/ stability and pain mgmt at end of tx. Required max cueing for postural/pelvic alignment throughout tx with fair self awareness and corrections. Standing rows and ext required R LE forward in a stance position for pelvic alignment and decreased lateral leaning. Cued keeping knee extended when ambulating to decrease risk of buckling and awareness of pelvic alignment during gait mobility . Physical Therapy Plan Frequency and Duration Frequency of Treatment 2x/Week Duration of Treatment Two months Plan of Care Start Date 10/26/20 Plan of Care End Date 12/24/20 Therapeutic Interventions Therapeutic Interventions Home Exercise Program,Manual Therapy,Neuromuscular Re- education,Patient/Caregiver Education,Self-Care/Home Management,Soft Tissue Mobilization,Therapeutic Activities,Therapeutic Exercises Modalities Cold Pack/Ice Massage,Electric Stimulation,Hot Packs, Ultrasound Next Visit Focus/Plan Next Note Type Treatment Note Next Visit Plan Assess response to K taping, side stepping and HEP: flexibility, core and LE strengthening last tx. Next tx add ball roll at wall: Low back/glut. Continue per PT POC: core and Le strengthening increasing activity toelrance
--- NOTE | 2020-11-09 12:08 | PT-OP ANOTE ---
Pt cancelled same day due to having migraines all week and IBS issues.
--- NOTE | 2020-11-17 12:48 | PT.OTN ---
Current Diagnoses Stiffness of other specified joint, not elsewhere classified (11/17/20) Spinal stenosis, lumbar region with neurogenic claudication (11/17/20) Encounter for other orthopedic aftercare (11/17/20) Arthrodesis status (11/17/20) Physical Therapy Treatment Note PT-OP-A Visit Information Start: 10/26/20 17:45 Freq: Status: Active Protocol: Document 11/17/20 12:00 DCW (Rec: 11/17/20 12:48 DCW [id number]) Out-Patient Physical Therapy Visit Information Visit Information Visit Type Treatment Note Visit Start Time 12:00 Visit Stop Time 12:45 Total Visit Minutes 45 Visit Number 4 Number of DIE ENGRAVING SUPERVISOR Visits 0 Evaluation Information Evaluation Date 10/26/20 PT-OP-B Current Condition Start: 10/26/20 17:45 Freq: Status: Active Protocol: Document 10/26/20 16:10 DCW (Rec: 10/26/20 17:55 DCW [id number]) Current Condition History of Current Condition Onset Date 07/22/20 Current Complaints s/p L3-4 Laminectomy/ decompression and posterolateral fusion History of Current Condition Pt is a 60 year old female presenting three months s/p L3 -4 laminectomy/decompression and posterolateral fusion. This is also 13 years s/p an L4-S1 lami/fusion. Pt notes her recovery so far is much better than her previous lami . Pt was previously seen at this clinic five years ago after a knee injury. 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 Following x-rays and a CT scan, pt was in the process of obtaining an MRI when she returned to her surgeon from 2007, who obtained an MRI and decided to go forward with her surgery. Since surgery, pt has been feeling better overall, but still has limited activity tolerance, feels her legs and core are weak, and she cannot sit or stand for any extended period of time. Pt would like to be able to get out walking to lose some of this quarantine weight I've gained, as well as tolerate standing so she can volunteer in local classrooms, and to be able to tolerate longer drives so she can visit her son, who lives in [place]. PT-OP-C Subjective Start: 10/26/20 17:45 Freq: Status: Active Protocol: Document 11/17/20 12:00 DCW (Rec: 11/17/20 12:48 DCW [id number]) OP-PT Subjective Patient Comments Patient Comments Pt admits that she is not great today. Notes that she has basically laid around for a week. PT-OP-E Functional Tests Start: 10/26/20 17:45 Freq: Status: Active Protocol: Document 10/26/20 16:10 DCW (Rec: 10/27/20 09:39 DCW [id number]) Functional Tests 6 Minute Walk Test Distance 966' Device Used none Comments fatigue/pain after two minutes PT-OP-K Range of Motion Start: 10/26/20 17:45 Freq: Status: Active Protocol: Document 10/26/20 16:10 DCW (Rec: 10/27/20 09:41 DCW [id number]) Lumbar Spine Range of Motion Lumbar Spine Active Degrees Testing Position Standing Flexion 20 Extension 0 Lateral Flexion Left 52 Lateral Flexion Right 50 Comments Lateral flexion measured in cm from floor to finger-tips PT-OP-M Strength Start: 10/26/20 17:45 Freq: Status: Active Protocol: Document 10/26/20 16:10 DCW (Rec: 10/27/20 09:41 DCW [id number]) Hip Strength Hip Manual Muscle Testing Right Flexion (L2) 3+ Fair+ Extension (S1) 4 Good Abduction 4 Good Adduction 4+ Good+ External Rotation 4 Good Internal Rotation 4+ Good+ Left Flexion (L2) 3+ Fair+ Extension (S1) 4 Good Abduction 4 Good Adduction 4+ Good+ External Rotation 4- Good- Internal Rotation 4 Good Knee Strength Knee Manual Muscle Testing Right Flexion (S2) 4 Good Extension (L3) 4 Good Left Flexion (S2) 4 Good Extension (L3) 4 Good PT-OP-Q Treatments Start: 10/26/20 17:45 Freq: Status: Active Protocol: Document 11/17/20 12:00 DCW (Rec: 11/17/20 12:48 DCW [id number]) Cardio Equipment Recumbent Elliptical ([employer]) Duration (Minutes) 5 Resistance 3 Seat Position 8 Gym Equipment Shuttle Recovery Unilateral Squats Resistance 37# Shuttle Recovery Platform Stable Bilateral Squats Resistance 75# Shuttle Recovery Platform Stable Therapeutic Exercises Supine Exercises LTR Supine Exercise Name Blue T-ball Side bilateral Comments range to tolerance DLFO w/ TB Supine Exercise Name good control w/ self correction. Side bilateral Resistance L1 band Reps/Minutes x10 Comments cued slow pacing control for LS stability and TA awareness Standing Exercises Side stepping Side bilateral Reps/Minutes 2 laps Comments cued upright posture, neutral pelvic alignment resisted shld ext Standing Exercise Name split stance, w/ R knee forward to maintain neutral pelvic alignment. Side bilateral Resistance L2 band Reps/Minutes x10 Comments cued soft knee, neutral pelvis , tall posture, scap depress stab resisted row Side bilateral Resistance L2 band Reps/Minutes x10 Comments cued soft knee, neutral pelvis , tall posture, scap depress stab Manual Therapy Treatment Soft Tissue Mobilization 2 Body Location B Piriformis 1 Body Location B Lumbar paraspinals PT-OP-T Assessment and Plan Start: 10/26/20 17:45 Freq: Status: Active Protocol: Document 11/17/20 12:00 DCW (Rec: 11/17/20 12:48 DCW [id number]) Physical Therapy Assessment Impairments Impairments Activity Tolerance,Functional Activities,Functional Mobility ,Pain,ROM,Soft Tissue Mobility ,Tone Goals Three Impairment Pt unable to visit her son due to low tolerance with time seated in car Senior Care Goal (LTG) Pt to tolerate sitting in car for 90 minutes at a time with no increase in pain to enable her to visit her son. LTG Duration 12/25/20 Two Impairment Pt poor standing and walking tolerance limits her ability to walk Senior Care Goal (LTG) Pt to tolerate walking the two mile [place] loop without increased pain LTG Duration 12/25/20 One Impairment Pt does not have an appropriate home exercise program Short Term Goal (STG) Pt to be independent and compliant with an appropriate HEP STG Duration 11/24/20 Assessment Summary Assessment Pt tolerated treatment very well today, responds well to instruction involving core contraction and proper breathing. Pt noted STM helped loosen up her low back. Physical Therapy Plan Frequency and Duration Frequency of Treatment 2x/Week Duration of Treatment Two months Plan of Care Start Date 10/26/20 Plan of Care End Date 12/24/20 Therapeutic Interventions Therapeutic Interventions Home Exercise Program,Manual Therapy,Neuromuscular Re- education,Patient/Caregiver Education,Self-Care/Home Management,Soft Tissue Mobilization,Therapeutic Activities,Therapeutic Exercises Modalities Cold Pack/Ice Massage,Electric Stimulation,Hot Packs, Ultrasound Next Visit Focus/Plan Next Note Type Treatment Note Next Visit Plan Assess response to K taping, side stepping and HEP: flexibility, core and LE strengthening last tx. Next tx add ball roll at wall: Low back/glut. Continue per PT POC: core and Le strengthening increasing activity tolerance
--- NOTE | 2020-11-20 12:50 | PT.OTN ---
Current Diagnoses Stiffness of other specified joint, not elsewhere classified (11/20/20) Spinal stenosis, lumbar region with neurogenic claudication (11/20/20) Encounter for other orthopedic aftercare (11/20/20) Arthrodesis status (11/20/20) Physical Therapy Treatment Note PT-OP-A Visit Information Start: 10/26/20 17:45 Freq: Status: Active Protocol: Document 11/20/20 12:00 DCW (Rec: 11/20/20 12:50 DCW [id number]) Out-Patient Physical Therapy Visit Information Visit Information Visit Type Treatment Note Visit Start Time 12:00 Visit Stop Time 12:45 Total Visit Minutes 45 Visit Number 5 Number of SMALL PRODUCTS ASSEMBLER Visits 0 Evaluation Information Evaluation Date 10/26/20 PT-OP-B Current Condition Start: 10/26/20 17:45 Freq: Status: Active Protocol: Document 10/26/20 16:10 DCW (Rec: 10/26/20 17:55 DCW [id number]) Current Condition History of Current Condition Onset Date 07/22/20 Current Complaints s/p L3-4 Laminectomy/ decompression and posterolateral fusion History of Current Condition Pt is a 60 year old female presenting three months s/p L3 -4 laminectomy/decompression and posterolateral fusion. This is also 13 years s/p an L4-S1 lami/fusion. Pt notes her recovery so far is much better than her previous lami . Pt was previously seen at this clinic five years ago after a knee injury. 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 Following x-rays and a CT scan, pt was in the process of obtaining an MRI when she returned to her surgeon from 2007, who obtained an MRI and decided to go forward with her surgery. Since surgery, pt has been feeling better overall, but still has limited activity tolerance, feels her legs and core are weak, and she cannot sit or stand for any extended period of time. Pt would like to be able to get out walking to lose some of this quarantine weight I've gained, as well as tolerate standing so she can volunteer in local classrooms, and to be able to tolerate longer drives so she can visit her son, who lives in [place]. PT-OP-C Subjective Start: 10/26/20 17:45 Freq: Status: Active Protocol: Document 11/20/20 12:00 DCW (Rec: 11/20/20 12:50 DCW [id number]) OP-PT Subjective Patient Comments Patient Comments I felt really good about out our workout last time. PT-OP-E Functional Tests Start: 10/26/20 17:45 Freq: Status: Active Protocol: Document 10/26/20 16:10 DCW (Rec: 10/27/20 09:39 DCW [id number]) Functional Tests 6 Minute Walk Test Distance 966' Device Used none Comments fatigue/pain after two minutes PT-OP-K Range of Motion Start: 10/26/20 17:45 Freq: Status: Active Protocol: Document 10/26/20 16:10 DCW (Rec: 10/27/20 09:41 DCW [id number]) Lumbar Spine Range of Motion Lumbar Spine Active Degrees Testing Position Standing Flexion 20 Extension 0 Lateral Flexion Left 52 Lateral Flexion Right 50 Comments Lateral flexion measured in cm from floor to finger-tips PT-OP-M Strength Start: 10/26/20 17:45 Freq: Status: Active Protocol: Document 10/26/20 16:10 DCW (Rec: 10/27/20 09:41 DCW [id number]) Hip Strength Hip Manual Muscle Testing Right Flexion (L2) 3+ Fair+ Extension (S1) 4 Good Abduction 4 Good Adduction 4+ Good+ External Rotation 4 Good Internal Rotation 4+ Good+ Left Flexion (L2) 3+ Fair+ Extension (S1) 4 Good Abduction 4 Good Adduction 4+ Good+ External Rotation 4- Good- Internal Rotation 4 Good Knee Strength Knee Manual Muscle Testing Right Flexion (S2) 4 Good Extension (L3) 4 Good Left Flexion (S2) 4 Good Extension (L3) 4 Good PT-OP-Q Treatments Start: 10/26/20 17:45 Freq: Status: Active Protocol: Document 11/20/20 12:00 DCW (Rec: 11/20/20 12:50 DCW [id number]) Cardio Equipment Recumbent Elliptical ([employer]) Duration (Minutes) 6 Resistance 3 Seat Position 8 Gym Equipment Shuttle Recovery Unilateral Squats Resistance 37# Shuttle Recovery Platform Stable Bilateral Squats Resistance 75# Shuttle Recovery Platform Stable Therapeutic Exercises Supine Exercises LTR Supine Exercise Name Blue T-ball Side bilateral Comments range to tolerance Sidelying Exercises 3 Sidelying Exercise Name Hip Abduction Side bilateral 2 Sidelying Exercise Name Reverse Clamshell Side bilateral 1 Sidelying Exercise Name Clamshells Side bilateral Standing Exercises Side stepping Side bilateral Resistance Yellow Equipment Used T-band Reps/Minutes 2 laps Comments cued upright posture, neutral pelvic alignment resisted shld ext Standing Exercise Name split stance, w/ R knee forward to maintain neutral pelvic alignment. Side bilateral Resistance L2 band Reps/Minutes x10 Comments cued soft knee, neutral pelvis , tall posture, scap depress stab resisted row Side bilateral Resistance L2 band Reps/Minutes x10 Comments cued soft knee, neutral pelvis , tall posture, scap depress stab Manual Therapy Treatment Soft Tissue Mobilization 2 Body Location B Piriformis 1 Body Location B Lumbar paraspinals PT-OP-T Assessment and Plan Start: 10/26/20 17:45 Freq: Status: Active Protocol: Document 11/20/20 12:00 DCW (Rec: 11/20/20 12:50 DCW [id number]) Physical Therapy Assessment Impairments Impairments Activity Tolerance,Functional Activities,Functional Mobility ,Pain,ROM,Soft Tissue Mobility ,Tone Goals Three Impairment Pt unable to visit her son due to low tolerance with time seated in car Triage Clinician Goal (LTG) Pt to tolerate sitting in car for 90 minutes at a time with no increase in pain to enable her to visit her son. LTG Duration 12/25/20 Two Impairment Pt poor standing and walking tolerance limits her ability to walk Triage Clinician Goal (LTG) Pt to tolerate walking the two mile [place] loop without increased pain LTG Duration 12/25/20 One Impairment Pt does not have an appropriate home exercise program Short Term Goal (STG) Pt to be independent and compliant with an appropriate HEP STG Duration 11/24/20 Assessment Summary Assessment Pt continues to progress, doing well with stability and core contraction. Physical Therapy Plan Frequency and Duration Frequency of Treatment 2x/Week Duration of Treatment Two months Plan of Care Start Date 10/26/20 Plan of Care End Date 12/24/20 Therapeutic Interventions Therapeutic Interventions Home Exercise Program,Manual Therapy,Neuromuscular Re- education,Patient/Caregiver Education,Self-Care/Home Management,Soft Tissue Mobilization,Therapeutic Activities,Therapeutic Exercises Modalities Cold Pack/Ice Massage,Electric Stimulation,Hot Packs, Ultrasound Next Visit Focus/Plan Next Note Type Treatment Note Next Visit Plan Assess response to K taping, side stepping and HEP: flexibility, core and LE strengthening last tx. Next tx add ball roll at wall: Low back/glut. Continue per PT POC: core and Le strengthening increasing activity toelrance
--- NOTE | 2020-11-24 12:46 | PT.OTN ---
Current Diagnoses Stiffness of other specified joint, not elsewhere classified (11/24/20) Spinal stenosis, lumbar region with neurogenic claudication (11/24/20) Encounter for other orthopedic aftercare (11/24/20) Arthrodesis status (11/24/20) Physical Therapy Treatment Note PT-OP-A Visit Information Start: 10/26/20 17:45 Freq: Status: Active Protocol: Document 11/24/20 12:05 DCW (Rec: 11/24/20 12:46 DCW [id number]) Out-Patient Physical Therapy Visit Information Visit Information Visit Type Treatment Note Visit Start Time 12:05 Visit Stop Time 12:45 Total Visit Minutes 40 Visit Number 6 Number of ECONOMIC SPECIALIST Visits 0 Evaluation Information Evaluation Date 10/26/20 PT-OP-B Current Condition Start: 10/26/20 17:45 Freq: Status: Active Protocol: Document 10/26/20 16:10 DCW (Rec: 10/26/20 17:55 DCW [id number]) Current Condition History of Current Condition Onset Date 07/22/20 Current Complaints s/p L3-4 Laminectomy/ decompression and posterolateral fusion History of Current Condition Pt is a 60 year old female presenting three months s/p L3 -4 laminectomy/decompression and posterolateral fusion. This is also 13 years s/p an L4-S1 lami/fusion. Pt notes her recovery so far is much better than her previous lami . Pt was previously seen at this clinic five years ago after a knee injury. 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 Following x-rays and a CT scan, pt was in the process of obtaining an MRI when she returned to her surgeon from 2007, who obtained an MRI and decided to go forward with her surgery. Since surgery, pt has been feeling better overall, but still has limited activity tolerance, feels her legs and core are weak, and she cannot sit or stand for any extended period of time. Pt would like to be able to get out walking to lose some of this quarantine weight I've gained, as well as tolerate standing so she can volunteer in local classrooms, and to be able to tolerate longer drives so she can visit her son, who lives in [place]. PT-OP-C Subjective Start: 10/26/20 17:45 Freq: Status: Active Protocol: Document 11/24/20 12:05 DCW (Rec: 11/24/20 12:46 DCW [id number]) OP-PT Subjective Patient Comments Patient Comments Pt reports she has a migraine today. Does note she was out gardening yesterday, felt a little sore and tired afterward, and fell asleep at 7:30 last night. PT-OP-E Functional Tests Start: 10/26/20 17:45 Freq: Status: Active Protocol: Document 10/26/20 16:10 DCW (Rec: 10/27/20 09:39 DCW [id number]) Functional Tests 6 Minute Walk Test Distance 966' Device Used none Comments fatigue/pain after two minutes PT-OP-K Range of Motion Start: 10/26/20 17:45 Freq: Status: Active Protocol: Document 10/26/20 16:10 DCW (Rec: 10/27/20 09:41 DCW [id number]) Lumbar Spine Range of Motion Lumbar Spine Active Degrees Testing Position Standing Flexion 20 Extension 0 Lateral Flexion Left 52 Lateral Flexion Right 50 Comments Lateral flexion measured in cm from floor to finger-tips PT-OP-M Strength Start: 10/26/20 17:45 Freq: Status: Active Protocol: Document 10/26/20 16:10 DCW (Rec: 10/27/20 09:41 DCW [id number]) Hip Strength Hip Manual Muscle Testing Right Flexion (L2) 3+ Fair+ Extension (S1) 4 Good Abduction 4 Good Adduction 4+ Good+ External Rotation 4 Good Internal Rotation 4+ Good+ Left Flexion (L2) 3+ Fair+ Extension (S1) 4 Good Abduction 4 Good Adduction 4+ Good+ External Rotation 4- Good- Internal Rotation 4 Good Knee Strength Knee Manual Muscle Testing Right Flexion (S2) 4 Good Extension (L3) 4 Good Left Flexion (S2) 4 Good Extension (L3) 4 Good PT-OP-Q Treatments Start: 10/26/20 17:45 Freq: Status: Active Protocol: Document 11/24/20 12:05 DCW (Rec: 11/24/20 12:46 DCW [id number]) Cardio Equipment Recumbent Elliptical ([employer]) Duration (Minutes) 6 Resistance 3 Seat Position 8 Gym Equipment Shuttle Recovery Unilateral Squats Resistance 37# Shuttle Recovery Platform Stable Bilateral Squats Resistance 75# Shuttle Recovery Platform Stable Therapeutic Exercises Supine Exercises LTR Supine Exercise Name Blue T-ball Side bilateral Comments range to tolerance Standing Exercises Side stepping Side bilateral Resistance Yellow Equipment Used T-band Reps/Minutes 2 laps Comments cued upright posture, neutral pelvic alignment resisted shld ext Standing Exercise Name split stance, w/ R knee forward to maintain neutral pelvic alignment. Side bilateral Resistance L2 band Reps/Minutes x10 Comments cued soft knee, neutral pelvis , tall posture, scap depress stab resisted row Side bilateral Resistance L2 band Reps/Minutes x10 Comments cued soft knee, neutral pelvis , tall posture, scap depress stab Manual Therapy Treatment Soft Tissue Mobilization 2 Body Location B Piriformis 1 Body Location B Lumbar paraspinals PT-OP-T Assessment and Plan Start: 10/26/20 17:45 Freq: Status: Active Protocol: Document 11/24/20 12:05 DCW (Rec: 11/24/20 12:46 DCW [id number]) Physical Therapy Assessment Impairments Impairments Activity Tolerance,Functional Activities,Functional Mobility ,Pain,ROM,Soft Tissue Mobility ,Tone Goals Three Impairment Pt unable to visit her son due to low tolerance with time seated in car Turf And Grounds Supervisor Goal (LTG) Pt to tolerate sitting in car for 90 minutes at a time with no increase in pain to enable her to visit her son. LTG Duration 12/25/20 Two Impairment Pt poor standing and walking tolerance limits her ability to walk Half-Way Goal (LTG) Pt to tolerate walking the two mile [place] loop without increased pain LTG Duration 12/25/20 One Impairment Pt does not have an appropriate home exercise program Short Term Goal (STG) Pt to be independent and compliant with an appropriate HEP STG Duration 11/24/20 Assessment Summary Assessment Pt tolerated treatment well today, continues to progress well. Physical Therapy Plan Frequency and Duration Frequency of Treatment 2x/Week Duration of Treatment Two months Plan of Care Start Date 10/26/20 Plan of Care End Date 12/24/20 Therapeutic Interventions Therapeutic Interventions Home Exercise Program,Manual Therapy,Neuromuscular Re- education,Patient/Caregiver Education,Self-Care/Home Management,Soft Tissue Mobilization,Therapeutic Activities,Therapeutic Exercises Modalities Cold Pack/Ice Massage,Electric Stimulation,Hot Packs, Ultrasound Next Visit Focus/Plan Next Note Type Treatment Note Next Visit Plan Assess response to K taping, side stepping and HEP: flexibility, core and LE strengthening last tx. Next tx add ball roll at wall: Low back/glut. Continue per PT POC: core and Le strengthening increasing activity toelrance
--- NOTE | 2020-11-27 12:48 | PT.OTN ---
Current Diagnoses Stiffness of other specified joint, not elsewhere classified (11/27/20) Spinal stenosis, lumbar region with neurogenic claudication (11/27/20) Encounter for other orthopedic aftercare (11/27/20) Arthrodesis status (11/27/20) Physical Therapy Treatment Note PT-OP-A Visit Information Start: 10/26/20 17:45 Freq: Status: Active Protocol: Document 11/27/20 12:02 DCW (Rec: 11/27/20 12:48 DCW [id number]) Out-Patient Physical Therapy Visit Information Visit Information Visit Type Treatment Note Visit Start Time 12:02 Visit Stop Time 12:45 Total Visit Minutes 43 Visit Number 7 Number of RN TRANSFER Visits 0 Evaluation Information Evaluation Date 10/26/20 PT-OP-B Current Condition Start: 10/26/20 17:45 Freq: Status: Active Protocol: Document 10/26/20 16:10 DCW (Rec: 10/26/20 17:55 DCW [id number]) Current Condition History of Current Condition Onset Date 07/22/20 Current Complaints s/p L3-4 Laminectomy/ decompression and posterolateral fusion History of Current Condition Pt is a 60 year old female presenting three months s/p L3 -4 laminectomy/decompression and posterolateral fusion. This is also 13 years s/p an L4-S1 lami/fusion. Pt notes her recovery so far is much better than her previous lami . Pt was previously seen at this clinic five years ago after a knee injury. 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 Following x-rays and a CT scan, pt was in the process of obtaining an MRI when she returned to her surgeon from 2007, who obtained an MRI and decided to go forward with her surgery. Since surgery, pt has been feeling better overall, but still has limited activity tolerance, feels her legs and core are weak, and she cannot sit or stand for any extended period of time. Pt would like to be able to get out walking to lose some of this quarantine weight I've gained, as well as tolerate standing so she can volunteer in local classrooms, and to be able to tolerate longer drives so she can visit her son, who lives in [place]. PT-OP-C Subjective Start: 10/26/20 17:45 Freq: Status: Active Protocol: Document 11/27/20 12:02 DCW (Rec: 11/27/20 12:48 DCW [id number]) OP-PT Subjective Patient Comments Patient Comments Pt reports she got notification from her PCP that she has fluid on her knee. PT-OP-E Functional Tests Start: 10/26/20 17:45 Freq: Status: Active Protocol: Document 10/26/20 16:10 DCW (Rec: 10/27/20 09:39 DCW [id number]) Functional Tests 6 Minute Walk Test Distance 966' Device Used none Comments fatigue/pain after two minutes PT-OP-K Range of Motion Start: 10/26/20 17:45 Freq: Status: Active Protocol: Document 10/26/20 16:10 DCW (Rec: 10/27/20 09:41 DCW [id number]) Lumbar Spine Range of Motion Lumbar Spine Active Degrees Testing Position Standing Flexion 20 Extension 0 Lateral Flexion Left 52 Lateral Flexion Right 50 Comments Lateral flexion measured in cm from floor to finger-tips PT-OP-M Strength Start: 10/26/20 17:45 Freq: Status: Active Protocol: Document 10/26/20 16:10 DCW (Rec: 10/27/20 09:41 DCW [id number]) Hip Strength Hip Manual Muscle Testing Right Flexion (L2) 3+ Fair+ Extension (S1) 4 Good Abduction 4 Good Adduction 4+ Good+ External Rotation 4 Good Internal Rotation 4+ Good+ Left Flexion (L2) 3+ Fair+ Extension (S1) 4 Good Abduction 4 Good Adduction 4+ Good+ External Rotation 4- Good- Internal Rotation 4 Good Knee Strength Knee Manual Muscle Testing Right Flexion (S2) 4 Good Extension (L3) 4 Good Left Flexion (S2) 4 Good Extension (L3) 4 Good PT-OP-Q Treatments Start: 10/26/20 17:45 Freq: Status: Active Protocol: Document 11/27/20 12:02 DCW (Rec: 11/27/20 12:48 DCW [id number]) Cardio Equipment Recumbent Elliptical ([employer]) Duration (Minutes) 6 Resistance 4 Seat Position 8 Gym Equipment Shuttle Recovery Unilateral Squats Resistance 37# Shuttle Recovery Platform Stable Bilateral Squats Resistance 75# Shuttle Recovery Platform Stable Therapeutic Exercises Supine Exercises LTR Supine Exercise Name Blue T-ball Side bilateral Comments range to tolerance Standing Exercises Side stepping Side bilateral Resistance Green Equipment Used T-band Reps/Minutes 2 laps Comments cued upright posture, neutral pelvic alignment resisted shld ext Standing Exercise Name split stance, w/ R knee forward to maintain neutral pelvic alignment. Side bilateral Resistance Lv 3 Equipment Used T-band Reps/Minutes x10 Comments cued soft knee, neutral pelvis , tall posture, scap depress stab resisted row Side bilateral Resistance Lv 3 Equipment Used T-band Reps/Minutes x10 Comments cued soft knee, neutral pelvis , tall posture, scap depress stab Manual Therapy Treatment Soft Tissue Mobilization 2 Body Location B Piriformis 1 Body Location B Lumbar paraspinals PT-OP-T Assessment and Plan Start: 10/26/20 17:45 Freq: Status: Active Protocol: Document 11/27/20 12:02 DCW (Rec: 11/27/20 12:48 DCW [id number]) Physical Therapy Assessment Impairments Impairments Activity Tolerance,Functional Activities,Functional Mobility ,Pain,ROM,Soft Tissue Mobility ,Tone Goals Three Impairment Pt unable to visit her son due to low tolerance with time seated in car Rosin Barrel Filler Goal (LTG) Pt to tolerate sitting in car for 90 minutes at a time with no increase in pain to enable her to visit her son. LTG Duration 12/25/20 Two Impairment Pt poor standing and walking tolerance limits her ability to walk Rosin Barrel Filler Goal (LTG) Pt to tolerate walking the two mile [place] loop without increased pain LTG Duration 12/25/20 One Impairment Pt does not have an appropriate home exercise program Short Term Goal (STG) Pt to be independent and compliant with an appropriate HEP STG Duration 11/24/20 Assessment Summary Assessment Pt returning next week to surgeon for her three month follow up. Doing well with her recovery, improved pain control, significantly improved mobility. Physical Therapy Plan Frequency and Duration Frequency of Treatment 2x/Week Duration of Treatment Two months Plan of Care Start Date 10/26/20 Plan of Care End Date 12/24/20 Therapeutic Interventions Therapeutic Interventions Home Exercise Program,Manual Therapy,Neuromuscular Re- education,Patient/Caregiver Education,Self-Care/Home Management,Soft Tissue Mobilization,Therapeutic Activities,Therapeutic Exercises Modalities Cold Pack/Ice Massage,Electric Stimulation,Hot Packs, Ultrasound Next Visit Focus/Plan Next Note Type Treatment Note Next Visit Plan Assess response to K taping, side stepping and HEP: flexibility, core and LE strengthening last tx. Next tx add ball roll at wall: Low back/glut. Continue per PT POC: core and Le strengthening increasing activity toelrance
--- NOTE | 2020-12-08 10:30 | PT-OP ANOTE ---
Pt called same today and next 12/10 appt, has been feeling ill. EQUITIES ANALYST left message, reminder of next appt 12/15/20 with her PT Tobias.
--- NOTE | 2020-12-08 11:25 | PT-OP ANOTE ---
Pt called and cancelled today's and next appt on 12/10/20 due to feeling ill. LOAD TEST MECHANIC called and reminded of next appt 12/15/20 with KATELIN Collado.
--- NOTE | 2020-12-15 12:46 | PT.OTN ---
Current Diagnoses Stiffness of other specified joint, not elsewhere classified (12/15/20) Spinal stenosis, lumbar region with neurogenic claudication (12/15/20) Encounter for other orthopedic aftercare (12/15/20) Arthrodesis status (12/15/20) Physical Therapy Treatment Note PT-OP-A Visit Information Start: 10/26/20 17:45 Freq: Status: Active Protocol: Document 12/15/20 12:02 DCW (Rec: 12/15/20 12:46 DCW [id number]) Out-Patient Physical Therapy Visit Information Visit Information Visit Type Treatment Note Visit Start Time 12:02 Visit Stop Time 12:45 Total Visit Minutes 43 Visit Number 8 Number of MORNING NEWS PRODUCER Visits 0 Evaluation Information Evaluation Date 10/26/20 PT-OP-B Current Condition Start: 10/26/20 17:45 Freq: Status: Active Protocol: Document 10/26/20 16:10 DCW (Rec: 10/26/20 17:55 DCW [id number]) Current Condition History of Current Condition Onset Date 07/22/20 Current Complaints s/p L3-4 Laminectomy/ decompression and posterolateral fusion History of Current Condition Pt is a 60 year old female presenting three months s/p L3 -4 laminectomy/decompression and posterolateral fusion. This is also 13 years s/p an L4-S1 lami/fusion. Pt notes her recovery so far is much better than her previous lami . Pt was previously seen at this clinic five years ago after a knee injury. 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 Following x-rays and a CT scan, pt was in the process of obtaining an MRI when she returned to her surgeon from 2007, who obtained an MRI and decided to go forward with her surgery. Since surgery, pt has been feeling better overall, but still has limited activity tolerance, feels her legs and core are weak, and she cannot sit or stand for any extended period of time. 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 PT-OP-C Subjective Start: 10/26/20 17:45 Freq: Status: Active Protocol: Document 12/15/20 12:02 DCW (Rec: 12/15/20 12:46 DCW [id number]) OP-PT Subjective Patient Comments Patient Comments Pt notes she is better than I was last week after canceling her appointment last week due to illness. PT-OP-E Functional Tests Start: 10/26/20 17:45 Freq: Status: Active Protocol: Document 10/26/20 16:10 DCW (Rec: 10/27/20 09:39 DCW [id number]) Functional Tests 6 Minute Walk Test Distance 966' Device Used none Comments fatigue/pain after two minutes PT-OP-K Range of Motion Start: 10/26/20 17:45 Freq: Status: Active Protocol: Document 10/26/20 16:10 DCW (Rec: 10/27/20 09:41 DCW [id number]) Lumbar Spine Range of Motion Lumbar Spine Active Degrees Testing Position Standing Flexion 20 Extension 0 Lateral Flexion Left 52 Lateral Flexion Right 50 Comments Lateral flexion measured in cm from floor to finger-tips PT-OP-M Strength Start: 10/26/20 17:45 Freq: Status: Active Protocol: Document 10/26/20 16:10 DCW (Rec: 10/27/20 09:41 DCW [id number]) Hip Strength Hip Manual Muscle Testing Right Flexion (L2) 3+ Fair+ Extension (S1) 4 Good Abduction 4 Good Adduction 4+ Good+ External Rotation 4 Good Internal Rotation 4+ Good+ Left Flexion (L2) 3+ Fair+ Extension (S1) 4 Good Abduction 4 Good Adduction 4+ Good+ External Rotation 4- Good- Internal Rotation 4 Good Knee Strength Knee Manual Muscle Testing Right Flexion (S2) 4 Good Extension (L3) 4 Good Left Flexion (S2) 4 Good Extension (L3) 4 Good PT-OP-Q Treatments Start: 10/26/20 17:45 Freq: Status: Active Protocol: Document 12/15/20 12:02 DCW (Rec: 12/15/20 12:46 DCW [id number]) Cardio Equipment Recumbent Elliptical ([employer]) Duration (Minutes) 6 Resistance 4 Seat Position 9 Gym Equipment Shuttle Recovery Unilateral Squats Resistance 37# Shuttle Recovery Platform Stable Bilateral Squats Resistance 75# Shuttle Recovery Platform Stable Therapeutic Exercises Supine Exercises LTR Supine Exercise Name Blue T-ball Side bilateral Comments range to tolerance Standing Exercises Side stepping Side bilateral Resistance Green Equipment Used T-band Reps/Minutes 2 laps Comments cued upright posture, neutral pelvic alignment resisted shld ext Standing Exercise Name split stance, w/ R knee forward to maintain neutral pelvic alignment. Side bilateral Resistance Lv 3 Equipment Used T-band Reps/Minutes x10 Comments cued soft knee, neutral pelvis , tall posture, scap depress stab resisted row Side bilateral Resistance Lv 3 Equipment Used T-band Reps/Minutes x10 Comments cued soft knee, neutral pelvis , tall posture, scap depress stab Manual Therapy Treatment Soft Tissue Mobilization 2 Body Location B Piriformis 1 Body Location B Lumbar paraspinals PT-OP-T Assessment and Plan Start: 10/26/20 17:45 Freq: Status: Active Protocol: Document 12/15/20 12:02 DCW (Rec: 12/15/20 12:46 DCW [id number]) Physical Therapy Assessment Impairments Impairments Activity Tolerance,Functional Activities,Functional Mobility ,Pain,ROM,Soft Tissue Mobility ,Tone Goals Three Impairment Pt unable to visit her son due to low tolerance with time seated in car Alf Goal (LTG) Pt to tolerate sitting in car for 90 minutes at a time with no increase in pain to enable her to visit her son. LTG Duration 12/25/20 Two Impairment Pt poor standing and walking tolerance limits her ability to walk Alf Goal (LTG) Pt to tolerate walking the two mile [place] loop without increased pain LTG Duration 12/25/20 One Impairment Pt does not have an appropriate home exercise program Short Term Goal (STG) Pt to be independent and compliant with an appropriate HEP STG Duration 11/24/20 Assessment Summary Assessment Pt continues to make good progress, decreased overall muscle tone along hips and paraspinals. Physical Therapy Plan Frequency and Duration Frequency of Treatment 2x/Week Duration of Treatment Two months Plan of Care Start Date 10/26/20 Plan of Care End Date 12/24/20 Therapeutic Interventions Therapeutic Interventions Home Exercise Program,Manual Therapy,Neuromuscular Re- education,Patient/Caregiver Education,Self-Care/Home Management,Soft Tissue Mobilization,Therapeutic Activities,Therapeutic Exercises Modalities Cold Pack/Ice Massage,Electric Stimulation,Hot Packs, Ultrasound Next Visit Focus/Plan Next Note Type Treatment Note Next Visit Plan Assess response to K taping, side stepping and HEP: flexibility, core and LE strengthening last tx. Next tx add ball roll at wall: Low back/glut. Continue per PT POC: core and Le strengthening increasing activity toelrance
--- NOTE | 2020-12-18 12:29 | PT-OP ANOTE ---
Pt did not show for today's early afternoon appt, left a message regarding and offered opening at 1345 or will see her at her next scheduled appt on 12/22 at 1200 with her PT Tobias.
--- NOTE | 2020-12-25 13:01 | PT.OTN ---
Current Diagnoses Stiffness of other specified joint, not elsewhere classified (12/25/20) Spinal stenosis, lumbar region with neurogenic claudication (12/25/20) Encounter for other orthopedic aftercare (12/25/20) Arthrodesis status (12/25/20) Physical Therapy Treatment Note PT-OP-A Visit Information Start: 10/26/20 17:45 Freq: Status: Active Protocol: Document 12/25/20 12:25 DCW (Rec: 12/25/20 13:01 DCW [id number]) Out-Patient Physical Therapy Visit Information Visit Information Visit Type Progress Note Visit Start Time 12:25 Visit Stop Time 13:00 Total Visit Minutes 35 Visit Number 9 Number of TEST RIDER Visits 0 Evaluation Information Evaluation Date 10/26/20 PT-OP-B Current Condition Start: 10/26/20 17:45 Freq: Status: Active Protocol: Document 10/26/20 16:10 DCW (Rec: 10/26/20 17:55 DCW [id number]) Current Condition History of Current Condition Onset Date 07/22/20 Current Complaints s/p L3-4 Laminectomy/ decompression and posterolateral fusion History of Current Condition Pt is a 60 year old female presenting three months s/p L3 -4 laminectomy/decompression and posterolateral fusion. This is also 13 years s/p an L4-S1 lami/fusion. Pt notes her recovery so far is much better than her previous lami . Pt was previously seen at this clinic five years ago after a knee injury. 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 Following x-rays and a CT scan, pt was in the process of obtaining an MRI when she returned to her surgeon from 2007, who obtained an MRI and decided to go forward with her surgery. Since surgery, pt has been feeling better overall, but still has limited activity tolerance, feels her legs and core are weak, and she cannot sit or stand for any extended period of time. Pt would like to be able to get out walking to lose some of this quarantine weight I've gained, as well as tolerate standing so she can volunteer in local classrooms, and to be able to tolerate longer drives so she can visit her son, who lives in [place]. PT-OP-C Subjective Start: 10/26/20 17:45 Freq: Status: Active Protocol: Document 12/25/20 12:25 DCW (Rec: 12/25/20 13:01 DCW [id number]) OP-PT Subjective Patient Comments Patient Comments Pt feeling like she is improving, although still fatiguing when out walking more, notes that she was at [facility] yesterday, was very tired by the end of her trip. PT-OP-E Functional Tests Start: 10/26/20 17:45 Freq: Status: Active Protocol: Document 12/25/20 12:25 DCW (Rec: 12/25/20 12:41 DCW [id number]) Functional Tests 6 Minute Walk Test Distance 1246' Device Used none PT-OP-K Range of Motion Start: 10/26/20 17:45 Freq: Status: Active Protocol: Document 12/25/20 12:25 DCW (Rec: 12/25/20 12:41 DCW [id number]) Lumbar Spine Range of Motion Lumbar Spine Active Degrees Testing Position Standing Flexion 52 Extension 18 Lateral Flexion Left 50 Lateral Flexion Right 48 Comments Lateral flexion measured in cm from floor to finger-tips PT-OP-M Strength Start: 10/26/20 17:45 Freq: Status: Active Protocol: Document 12/25/20 12:25 DCW (Rec: 12/25/20 12:41 DCW [id number]) Hip Strength Hip Manual Muscle Testing Right Flexion (L2) 4 Good Extension (S1) 4 Good Abduction 4 Good Adduction 4 Good External Rotation 4+ Good+ Internal Rotation 4+ Good+ Left Flexion (L2) 4 Good Extension (S1) 4 Good Abduction 4 Good Adduction 4 Good External Rotation 4+ Good+ Internal Rotation 4+ Good+ Knee Strength Knee Manual Muscle Testing Right Flexion (S2) 5 Normal Extension (L3) 5 Normal Left Flexion (S2) 5 Normal Extension (L3) 5 Normal PT-OP-Q Treatments Start: 10/26/20 17:45 Freq: Status: Active Protocol: Document 12/25/20 12:25 DCW (Rec: 12/25/20 13:01 DCW [id number]) Therapeutic Exercises Standing Exercises Side stepping Side bilateral Resistance Green Equipment Used T-band Reps/Minutes 2 laps Comments cued upright posture, neutral pelvic alignment resisted shld ext Standing Exercise Name split stance, w/ R knee forward to maintain neutral pelvic alignment. Side bilateral Resistance Lv 3 Equipment Used T-band Reps/Minutes x10 Comments cued soft knee, neutral pelvis , tall posture, scap depress stab resisted row Side bilateral Resistance Lv 3 Equipment Used T-band Reps/Minutes x10 Comments cued soft knee, neutral pelvis , tall posture, scap depress stab PT-OP-T Assessment and Plan Start: 10/26/20 17:45 Freq: Status: Active Protocol: Document 12/25/20 12:25 DCW (Rec: 12/25/20 13:01 DCW [id number]) Physical Therapy Assessment Impairments Impairments Activity Tolerance,Functional Activities,Functional Mobility ,Pain,ROM,Soft Tissue Mobility ,Tone Goals Three Impairment Pt unable to visit her son due to low tolerance with time seated in car Pelletizer Operator Goal (LTG) Pt to tolerate sitting in car for 90 minutes at a time with no increase in pain to enable her to visit her son. LTG Duration 02/24/21 Improving (45 minutes) Two Impairment Pt poor standing and walking tolerance limits her ability to walk Fdc Goal (LTG) Pt to tolerate walking the two mile [employer] loop without increased pain LTG Duration 02/24/21 Improving (~1 mile) One Impairment Pt does not have an appropriate home exercise program Short Term Goal (STG) Pt to be independent and compliant with an appropriate HEP STG Duration 01/24/21 Assessment Summary Assessment Pt overall showing improvement , 6 MWT shows statistically significant improvement of 280 ', ROM improved with lumbar flexion (20->52 degrees) and extension (0->18 degrees). Struggling with extended walking still, unable to get through her shopping trip at [employer]. Physical Therapy Plan Frequency and Duration Frequency of Treatment 2x/Week Duration of Treatment Two months Plan of Care Start Date 12/25/20 Plan of Care End Date 02/24/21 Therapeutic Interventions Therapeutic Interventions Home Exercise Program,Manual Therapy,Neuromuscular Re- education,Patient/Caregiver Education,Self-Care/Home Management,Soft Tissue Mobilization,Therapeutic Activities,Therapeutic Exercises Modalities Cold Pack/Ice Massage,Electric Stimulation,Hot Packs, Ultrasound Next Visit Focus/Plan Next Note Type Treatment Note Next Visit Plan Assess HEP: flexibility, core and LE strengthening last tx. Next tx add ball roll at wall: Low back/glut. Continue per PT POC: core and Le strengthening increasing activity toelrance
--- NOTE | 2020-12-25 13:02 | PT.OPPOC ---
Physical, Occupational & Speech Therapy At [facility] Current Diagnoses Stiffness of other specified joint, not elsewhere classified (12/25/20) Spinal stenosis, lumbar region with neurogenic claudication (12/25/20) Encounter for other orthopedic aftercare (12/25/20) Arthrodesis status (12/25/20) Visit Care Team Role Provider Type Puma Mendez MD Primary Care Provider Non-Staff Specialty: Family Practice Address: [address], [address], [place], [address] Email: Sherine Santos PA-C Attending Provider Non-Staff Referring Provider Specialty: General Surgery [facility] [address] [place], [address] Email: Plan Of Care PT-OP-T Assessment and Plan Start: 10/26/20 17:45 Freq: Status: Active Protocol: Document 12/25/20 12:25 DCW (Rec: 12/25/20 13:01 DCW [id number]) Physical Therapy Assessment Impairments Impairments Activity Tolerance,Functional Activities,Functional Mobility ,Pain,ROM,Soft Tissue Mobility ,Tone Goals Three Impairment Pt unable to visit her son due to low tolerance with time seated in car Fpc Goal (LTG) Pt to tolerate sitting in car for 90 minutes at a time with no increase in pain to enable her to visit her son. LTG Duration 02/24/21 Improving (45 minutes) Two Impairment Pt poor standing and walking tolerance limits her ability to walk Account Support Rep Goal (LTG) Pt to tolerate walking the two mile [place] loop without increased pain LTG Duration 02/24/21 Improving (~1 mile) One Impairment Pt does not have an appropriate home exercise program Short Term Goal (STG) Pt to be independent and compliant with an appropriate HEP STG Duration 01/24/21 Assessment Summary Assessment Pt overall showing improvement , 6 MWT shows statistically significant improvement of 280 ', ROM improved with lumbar flexion (20->52 degrees) and extension (0->18 degrees). Struggling with extended walking still, unable to get through her shopping trip at [facility]. Physical Therapy Plan Frequency and Duration Frequency of Treatment 2x/Week Duration of Treatment Two months Plan of Care Start Date 12/25/20 Plan of Care End Date 02/24/21 Therapeutic Interventions Therapeutic Interventions Home Exercise Program,Manual Therapy,Neuromuscular Re- education,Patient/Caregiver Education,Self-Care/Home Management,Soft Tissue Mobilization,Therapeutic Activities,Therapeutic Exercises Modalities Cold Pack/Ice Massage,Electric Stimulation,Hot Packs, Ultrasound Next Visit Focus/Plan Next Note Type Treatment Note Next Visit Plan Assess HEP: flexibility, core and LE strengthening last tx. Next tx add ball roll at wall: Low back/glut. Continue per PT POC: core and Le strengthening increasing activity tolerance Plan of Care Dates Plan of Care Start Date 12/25/20 Plan of Care End Date 02/24/21 Electronically Signed by: Christiano Pabon, PT 12/25/20 1302 Please Sign and Return: I have reviewed this Plan of Care and certify that the skilled therapy services above are required to meet the patient?s needs. Physician Signature Date Printed Name and Credentials Clinical Instructor Signature Printed Name and Credentials
--- NOTE | 2020-12-25 13:02 | PT.OPPOC ---
Physical, Occupational & Speech Therapy At [facility] Current Diagnoses Stiffness of other specified joint, not elsewhere classified (12/25/20) Spinal stenosis, lumbar region with neurogenic claudication (12/25/20) Encounter for other orthopedic aftercare (12/25/20) Arthrodesis status (12/25/20) Visit Care Team Role Provider Type Puma Mendez MD Primary Care Provider Non-Staff Specialty: Family Practice Address: [address], [address], [place], [address] Email: Sherine Santos PA-C Attending Provider Non-Staff Referring Provider Specialty: General Surgery [facility] [address] [place], [address] Email: Plan Of Care PT-OP-T Assessment and Plan Start: 10/26/20 17:45 Freq: Status: Active Protocol: Document 12/25/20 12:25 DCW (Rec: 12/25/20 13:01 DCW [id number]) Physical Therapy Assessment Impairments Impairments Activity Tolerance,Functional Activities,Functional Mobility ,Pain,ROM,Soft Tissue Mobility ,Tone Goals Three Impairment Pt unable to visit her son due to low tolerance with time seated in car Group Home Goal (LTG) Pt to tolerate sitting in car for 90 minutes at a time with no increase in pain to enable her to visit her son. LTG Duration 02/24/21 Improving (45 minutes) Two Impairment Pt poor standing and walking tolerance limits her ability to walk Marketing Executive Goal (LTG) Pt to tolerate walking the two mile [place] loop without increased pain LTG Duration 02/24/21 Improving (~1 mile) One Impairment Pt does not have an appropriate home exercise program Short Term Goal (STG) Pt to be independent and compliant with an appropriate HEP STG Duration 01/24/21 Assessment Summary Assessment Pt overall showing improvement , 6 MWT shows statistically significant improvement of 280 ', ROM improved with lumbar flexion (20->52 degrees) and extension (0->18 degrees). Struggling with extended walking still, unable to get through her shopping trip at [facility]. Physical Therapy Plan Frequency and Duration Frequency of Treatment 2x/Week Duration of Treatment Two months Plan of Care Start Date 12/25/20 Plan of Care End Date 02/24/21 Therapeutic Interventions Therapeutic Interventions Home Exercise Program,Manual Therapy,Neuromuscular Re- education,Patient/Caregiver Education,Self-Care/Home Management,Soft Tissue Mobilization,Therapeutic Activities,Therapeutic Exercises Modalities Cold Pack/Ice Massage,Electric Stimulation,Hot Packs, Ultrasound Next Visit Focus/Plan Next Note Type Treatment Note Next Visit Plan Assess HEP: flexibility, core and LE strengthening last tx. Next tx add ball roll at wall: Low back/glut. Continue per PT POC: core and Le strengthening increasing activity toelrance Plan of Care Dates Plan of Care Start Date 12/25/20 Plan of Care End Date 02/24/21 Electronically Signed by: Christiano Pabon, PT 12/25/20 1302 Please Sign and Return: I have reviewed this Plan of Care and certify that the skilled therapy services above are required to meet the patient?s needs. Physician Signature Date Printed Name and Credentials Clinical Instructor Signature Printed Name and Credentials
--- NOTE | 2020-12-29 12:48 | PT.OTN ---
Current Diagnoses Stiffness of other specified joint, not elsewhere classified (12/29/20) Spinal stenosis, lumbar region with neurogenic claudication (12/29/20) Encounter for other orthopedic aftercare (12/29/20) Arthrodesis status (12/29/20) Physical Therapy Treatment Note PT-OP-A Visit Information Start: 10/26/20 17:45 Freq: Status: Active Protocol: Document 12/29/20 12:05 DCW (Rec: 12/29/20 12:48 DCW [id number]) Out-Patient Physical Therapy Visit Information Visit Information Visit Type Treatment Note Visit Start Time 12:05 Visit Stop Time 12:45 Total Visit Minutes 40 Visit Number 10 Number of RAIL DOWELING MACHINE OPERATOR Visits 0 Evaluation Information Evaluation Date 10/26/20 PT-OP-B Current Condition Start: 10/26/20 17:45 Freq: Status: Active Protocol: Document 10/26/20 16:10 DCW (Rec: 10/26/20 17:55 DCW [id number]) Current Condition History of Current Condition Onset Date 07/22/20 Current Complaints s/p L3-4 Laminectomy/ decompression and posterolateral fusion History of Current Condition Pt is a 60 year old female presenting three months s/p L3 -4 laminectomy/decompression and posterolateral fusion. This is also 13 years s/p an L4-S1 lami/fusion. Pt notes her recovery so far is much better than her previous lami . Pt was previously seen at this clinic five years ago after a knee injury. 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 Following x-rays and a CT scan, pt was in the process of obtaining an MRI when she returned to her surgeon from 2007, who obtained an MRI and decided to go forward with her surgery. Since surgery, pt has been feeling better overall, but still has limited activity tolerance, feels her legs and core are weak, and she cannot sit or stand for any extended period of time. 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 PT-OP-C Subjective Start: 10/26/20 17:45 Freq: Status: Active Protocol: Document 12/29/20 12:05 DCW (Rec: 12/29/20 12:48 DCW [id number]) OP-PT Subjective Patient Comments Patient Comments Pt notes she has a headache today. Admits she is feeling like she still has the most difficulty standing for any extended time. PT-OP-E Functional Tests Start: 10/26/20 17:45 Freq: Status: Active Protocol: Document 12/25/20 12:25 DCW (Rec: 12/25/20 12:41 DCW [id number]) Functional Tests 6 Minute Walk Test Distance 1246' Device Used none PT-OP-K Range of Motion Start: 10/26/20 17:45 Freq: Status: Active Protocol: Document 12/25/20 12:25 DCW (Rec: 12/25/20 12:41 DCW [id number]) Lumbar Spine Range of Motion Lumbar Spine Active Degrees Testing Position Standing Flexion 52 Extension 18 Lateral Flexion Left 50 Lateral Flexion Right 48 Comments Lateral flexion measured in cm from floor to finger-tips PT-OP-M Strength Start: 10/26/20 17:45 Freq: Status: Active Protocol: Document 12/25/20 12:25 DCW (Rec: 12/25/20 12:41 DCW [id number]) Hip Strength Hip Manual Muscle Testing Right Flexion (L2) 4 Good Extension (S1) 4 Good Abduction 4 Good Adduction 4 Good External Rotation 4+ Good+ Internal Rotation 4+ Good+ Left Flexion (L2) 4 Good Extension (S1) 4 Good Abduction 4 Good Adduction 4 Good External Rotation 4+ Good+ Internal Rotation 4+ Good+ Knee Strength Knee Manual Muscle Testing Right Flexion (S2) 5 Normal Extension (L3) 5 Normal Left Flexion (S2) 5 Normal Extension (L3) 5 Normal PT-OP-Q Treatments Start: 10/26/20 17:45 Freq: Status: Active Protocol: Document 12/29/20 12:05 DCW (Rec: 12/29/20 12:48 DCW [id number]) Cardio Equipment Recumbent Elliptical (Cotopaxi) Duration (Minutes) 6 Resistance 5 Seat Position 8 Gym Equipment Shuttle Recovery Unilateral Squats Resistance 37# Shuttle Recovery Platform Stable Bilateral Squats Resistance 75# Shuttle Recovery Platform Stable Therapeutic Exercises Supine Exercises LTR Supine Exercise Name Blue T-ball Side bilateral Comments range to tolerance Standing Exercises Side stepping Side bilateral Resistance Green Equipment Used T-band Reps/Minutes 2 laps Comments cued upright posture, neutral pelvic alignment resisted shld ext Standing Exercise Name split stance, w/ R knee forward to maintain neutral pelvic alignment. Side bilateral Resistance Lv 3 Equipment Used T-band Reps/Minutes x10 Comments cued soft knee, neutral pelvis , tall posture, scap depress stab resisted row Side bilateral Resistance Lv 3 Equipment Used T-band Reps/Minutes x10 Comments cued soft knee, neutral pelvis , tall posture, scap depress stab Manual Therapy Treatment Soft Tissue Mobilization 2 Body Location B Piriformis 1 Body Location B Lumbar paraspinals PT-OP-T Assessment and Plan Start: 10/26/20 17:45 Freq: Status: Active Protocol: Document 12/29/20 12:05 DCW (Rec: 12/29/20 12:48 DCW [id number]) Physical Therapy Assessment Impairments Impairments Activity Tolerance,Functional Activities,Functional Mobility ,Pain,ROM,Soft Tissue Mobility ,Tone Goals Three Impairment Pt unable to visit her son due to low tolerance with time seated in car Hydroelectric Station Chief Goal (LTG) Pt to tolerate sitting in car for 90 minutes at a time with no increase in pain to enable her to visit her son. LTG Duration 02/24/21 Improving (45 minutes) Two Impairment Pt poor standing and walking tolerance limits her ability to walk Hydroelectric Station Chief Goal (LTG) Pt to tolerate walking the two mile [place] loop without increased pain LTG Duration 02/24/21 Improving (~1 mile) One Impairment Pt does not have an appropriate home exercise program Short Term Goal (STG) Pt to be independent and compliant with an appropriate HEP STG Duration 01/24/21 Assessment Summary Assessment Pt still doing well overall, improved mobility through low back, limited with standing tolerance. Physical Therapy Plan Frequency and Duration Frequency of Treatment 2x/Week Duration of Treatment Two months Plan of Care Start Date 12/25/20 Plan of Care End Date 02/24/21 Therapeutic Interventions Therapeutic Interventions Home Exercise Program,Manual Therapy,Neuromuscular Re- education,Patient/Caregiver Education,Self-Care/Home Management,Soft Tissue Mobilization,Therapeutic Activities,Therapeutic Exercises Modalities Cold Pack/Ice Massage,Electric Stimulation,Hot Packs, Ultrasound Next Visit Focus/Plan Next Note Type Treatment Note Next Visit Plan Assess HEP: flexibility, core and LE strengthening last tx. Next tx add ball roll at wall: Low back/glut. Continue per PT POC: core and Le strengthening increasing activity [place]elrance
--- NOTE | 2021-01-01 12:22 | PT-OP ANOTE ---
Pt cancelled shortly before appt, can't come in due to increased headaches and feeling ill past few days and noticed white sti in eye wondering if need to be seen for. Pt commented has IBS and will be having more testing in May to help understand if contributing to pain and how to work toward getting better. She says over all feel making improvement in mobility although still can't stand more than 10 min. SNUFF BLENDER commented although understand medical concerns having reminded her of cancellation and hospital policy, please try to call as far advance notice to allow us to fill appt time if can with verbal understanding, confirmed 01/05 appt.
--- NOTE | 2021-01-05 17:00 | PT-OP ANOTE ---
Pt no showed her appointment today. Therapist phoned patient, left message regarding pt's appointment, requesting she call back.
--- NOTE | 2021-01-08 13:00 | PT.OTN ---
Current Diagnoses Stiffness of other specified joint, not elsewhere classified (01/08/21) Spinal stenosis, lumbar region with neurogenic claudication (01/08/21) Encounter for other orthopedic aftercare (01/08/21) Arthrodesis status (01/08/21) Physical Therapy Treatment Note PT-OP-A Visit Information Start: 10/26/20 17:45 Freq: Status: Active Protocol: Document 01/08/21 12:16 SP (Rec: 01/08/21 13:03 SP [id number]) Out-Patient Physical Therapy Visit Information Visit Information Visit Type Treatment Note Visit Start Time 12:16 Visit Stop Time 13:00 Total Visit Minutes 44 Visit Number 11 Number of FLARE STITCHER Visits 1 Evaluation Information Evaluation Date 10/26/20 PT-OP-B Current Condition Start: 10/26/20 17:45 Freq: Status: Active Protocol: Document 10/26/20 16:10 DCW (Rec: 10/26/20 17:55 DCW [id number]) Current Condition History of Current Condition Onset Date 07/22/20 Current Complaints s/p L3-4 Laminectomy/ decompression and posterolateral fusion History of Current Condition Pt is a 60 year old female presenting three months s/p L3 -4 laminectomy/decompression and posterolateral fusion. This is also 13 years s/p an L4-S1 lami/fusion. Pt notes her recovery so far is much better than her previous lami . Pt was previously seen at this clinic five years ago after a knee injury. 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 Following x-rays and a CT scan, pt was in the process of obtaining an MRI when she returned to her surgeon from 2007, who obtained an MRI and decided to go forward with her surgery. Since surgery, pt has been feeling better overall, but still has limited activity tolerance, feels her legs and core are weak, and she cannot sit or stand for any extended period of time. 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 PT-OP-C Subjective Start: 10/26/20 17:45 Freq: Status: Active Protocol: Document 01/08/21 12:16 SP (Rec: 01/08/21 13:03 SP [id number]) OP-PT Subjective Patient Comments Patient Comments Pt stated is going to be more compliant with attendance to PT for self care. Was able to see phyician for eye. Pt looked up a past shiatsu practioner will try and attend for added selfcare for manual to compliment PT. Patient Reported Progress Improving PT-OP-E Functional Tests Start: 10/26/20 17:45 Freq: Status: Active Protocol: Document 12/25/20 12:25 DCW (Rec: 12/25/20 12:41 DCW [id number]) Functional Tests 6 Minute Walk Test Distance 1246' Device Used none PT-OP-K Range of Motion Start: 10/26/20 17:45 Freq: Status: Active Protocol: Document 12/25/20 12:25 DCW (Rec: 12/25/20 12:41 DCW [id number]) Lumbar Spine Range of Motion Lumbar Spine Active Degrees Testing Position Standing Flexion 52 Extension 18 Lateral Flexion Left 50 Lateral Flexion Right 48 Comments Lateral flexion measured in cm from floor to finger-tips PT-OP-M Strength Start: 10/26/20 17:45 Freq: Status: Active Protocol: Document 12/25/20 12:25 DCW (Rec: 12/25/20 12:41 DCW [id number]) Hip Strength Hip Manual Muscle Testing Right Flexion (L2) 4 Good Extension (S1) 4 Good Abduction 4 Good Adduction 4 Good External Rotation 4+ Good+ Internal Rotation 4+ Good+ Left Flexion (L2) 4 Good Extension (S1) 4 Good Abduction 4 Good Adduction 4 Good External Rotation 4+ Good+ Internal Rotation 4+ Good+ Knee Strength Knee Manual Muscle Testing Right Flexion (S2) 5 Normal Extension (L3) 5 Normal Left Flexion (S2) 5 Normal Extension (L3) 5 Normal PT-OP-Q Treatments Start: 10/26/20 17:45 Freq: Status: Active Protocol: Document 01/08/21 12:16 SP (Rec: 01/08/21 13:03 SP [id number]) Cardio Equipment Recumbent Elliptical (Biodex) Duration (Minutes) 6 Resistance 5 Seat Position 8 Gym Equipment Shuttle Recovery Unilateral Squats Resistance 37# Shuttle Recovery Platform Stable Reps/Time 2x10 Bilateral Squats Resistance 87# Shuttle Recovery Platform Stable Reps/Time x20 Therapeutic Exercises Supine Exercises LTR Supine Exercise Name Blue T-ball Side bilateral Reps/Minutes 2x10 Comments range to tolerance Standing Exercises Side stepping Side bilateral Resistance Green Equipment Used T-band Reps/Minutes 15 ft x2 laps Comments cued upright posture, neutral pelvic alignment resisted shld ext Standing Exercise Name split stance, w/ R knee forward to maintain neutral pelvic alignment. Side bilateral Resistance Lv 3 Equipment Used T-band Reps/Minutes x10 Comments cued soft knee, neutral pelvis , tall posture, scap depress stab resisted row Side bilateral Resistance Lv 3 Equipment Used T-band Reps/Minutes x10 Comments cued soft knee, neutral pelvis , tall posture, scap depress stab Other Exercises self STMs Other Exercise Name racquetball LS, gluts at wall Reps/Minutes 2 min total Comments good response Manual Therapy Treatment Soft Tissue Mobilization 2 Body Location B Piriformis 1 Body Location B Lumbar paraspinals PT-OP-T Assessment and Plan Start: 10/26/20 17:45 Freq: Status: Active Protocol: Document 01/08/21 12:16 SP (Rec: 01/08/21 13:03 SP [id number]) Physical Therapy Assessment Goals Three Impairment Pt unable to visit her son due to low tolerance with time seated in car Tomography Technologist Goal (LTG) Pt to tolerate sitting in car for 90 minutes at a time with no increase in pain to enable her to visit her son. LTG Duration 02/24/21 Improving (45 minutes) Two Impairment Pt poor standing and walking tolerance limits her ability to walk Half-Way Goal (LTG) Pt to tolerate walking the two mile [place] loop without increased pain LTG Duration 02/24/21 Improving (~1 mile) One Impairment Pt does not have an appropriate home exercise program Short Term Goal (STG) Pt to be independent and compliant with an appropriate HEP STG Duration 01/24/21 Assessment Summary Assessment Pt is hyperverbal with good feedback info of happenings in live, at times required cuing for task at hand. Pt responded well to ther ex and manual, initiated self STMs using racquetball at wall. Pt stated felt LB alot looser. Physical Therapy Plan Frequency and Duration Frequency of Treatment 2x/Week Duration of Treatment Two months Plan of Care Start Date 12/25/20 Plan of Care End Date 02/24/21 Therapeutic Interventions Therapeutic Interventions Home Exercise Program,Manual Therapy,Neuromuscular Re- education,Patient/Caregiver Education,Self-Care/Home Management,Soft Tissue Mobilization,Therapeutic Activities,Therapeutic Exercises Modalities Cold Pack/Ice Massage,Electric Stimulation,Hot Packs, Ultrasound Next Visit Focus/Plan Next Note Type Treatment Note Next Visit Plan Assess HEP: flexibility, core and LE strengthening last tx. Next tx add ball roll at wall: Low back/glut. Continue per PT POC: core and Le strengthening increasing activity [place]elrance
--- NOTE | 2021-01-12 12:51 | PT.OTN ---
Current Diagnoses Stiffness of other specified joint, not elsewhere classified (01/12/21) Spinal stenosis, lumbar region with neurogenic claudication (01/12/21) Encounter for other orthopedic aftercare (01/12/21) Arthrodesis status (01/12/21) Physical Therapy Treatment Note PT-OP-A Visit Information Start: 10/26/20 17:45 Freq: Status: Active Protocol: Document 01/12/21 12:10 DCW (Rec: 01/12/21 12:51 DCW [id number]) Out-Patient Physical Therapy Visit Information Visit Information Visit Type Treatment Note Visit Note 10 min late Visit Start Time 12:10 Visit Stop Time 12:45 Total Visit Minutes 35 Visit Number 12 Number of PHOTO TECHNOLOGIST Visits 0 Evaluation Information Evaluation Date 10/26/20 PT-OP-B Current Condition Start: 10/26/20 17:45 Freq: Status: Active Protocol: Document 10/26/20 16:10 DCW (Rec: 10/26/20 17:55 DCW [id number]) Current Condition History of Current Condition Onset Date 07/22/20 Current Complaints s/p L3-4 Laminectomy/ decompression and posterolateral fusion History of Current Condition Pt is a 60 year old female presenting three months s/p L3 -4 laminectomy/decompression and posterolateral fusion. This is also 13 years s/p an L4-S1 lami/fusion. Pt notes her recovery so far is much better than her previous lami . Pt was previously seen at this clinic five years ago after a knee injury. 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 Following x-rays and a CT scan, pt was in the process of obtaining an MRI when she returned to her surgeon from 2007, who obtained an MRI and decided to go forward with her surgery. Since surgery, pt has been feeling better overall, but still has limited activity tolerance, feels her legs and core are weak, and she cannot sit or stand for any extended period of time. 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 PT-OP-C Subjective Start: 10/26/20 17:45 Freq: Status: Active Protocol: Document 01/12/21 12:10 DCW (Rec: 01/12/21 12:51 DCW [id number]) OP-PT Subjective Patient Comments Patient Comments Pt reports overall she is doing better overall emotionally, notes her mood is better, feels like her back is improving some, but really felt it after last visit following the increased resistance. PT-OP-E Functional Tests Start: 10/26/20 17:45 Freq: Status: Active Protocol: Document 12/25/20 12:25 DCW (Rec: 12/25/20 12:41 DCW [id number]) Functional Tests 6 Minute Walk Test Distance 1246' Device Used none PT-OP-K Range of Motion Start: 10/26/20 17:45 Freq: Status: Active Protocol: Document 12/25/20 12:25 DCW (Rec: 12/25/20 12:41 DCW [id number]) Lumbar Spine Range of Motion Lumbar Spine Active Degrees Testing Position Standing Flexion 52 Extension 18 Lateral Flexion Left 50 Lateral Flexion Right 48 Comments Lateral flexion measured in cm from floor to finger-tips PT-OP-M Strength Start: 10/26/20 17:45 Freq: Status: Active Protocol: Document 12/25/20 12:25 DCW (Rec: 12/25/20 12:41 DCW [id number]) Hip Strength Hip Manual Muscle Testing Right Flexion (L2) 4 Good Extension (S1) 4 Good Abduction 4 Good Adduction 4 Good External Rotation 4+ Good+ Internal Rotation 4+ Good+ Left Flexion (L2) 4 Good Extension (S1) 4 Good Abduction 4 Good Adduction 4 Good External Rotation 4+ Good+ Internal Rotation 4+ Good+ Knee Strength Knee Manual Muscle Testing Right Flexion (S2) 5 Normal Extension (L3) 5 Normal Left Flexion (S2) 5 Normal Extension (L3) 5 Normal PT-OP-Q Treatments Start: 10/26/20 17:45 Freq: Status: Active Protocol: Document 01/12/21 12:10 DCW (Rec: 01/12/21 12:51 DCW [id number]) Cardio Equipment Recumbent Elliptical ([employer]) Duration (Minutes) 6 Resistance 6 Seat Position 9 Gym Equipment Shuttle Recovery Unilateral Squats Resistance 37# Shuttle Recovery Platform Stable Reps/Time 2x10 Bilateral Squats Resistance 87# Shuttle Recovery Platform Stable Reps/Time x20 Therapeutic Exercises Standing Exercises Side stepping Side bilateral Resistance Green Equipment Used T-band Reps/Minutes 15 ft x2 laps Comments cued upright posture, neutral pelvic alignment resisted shld ext Standing Exercise Name split stance, w/ R knee forward to maintain neutral pelvic alignment. Side bilateral Resistance Lv 3 Equipment Used T-band Reps/Minutes x10 Comments cued soft knee, neutral pelvis , tall posture, scap depress stab resisted row Side bilateral Resistance Lv 3 Equipment Used T-band Reps/Minutes x10 Comments cued soft knee, neutral pelvis , tall posture, scap depress stab Manual Therapy Treatment Soft Tissue Mobilization 2 Body Location B Piriformis 1 Body Location B Lumbar paraspinals PT-OP-T Assessment and Plan Start: 10/26/20 17:45 Freq: Status: Active Protocol: Document 01/12/21 12:10 DCW (Rec: 01/12/21 12:51 DCW [id number]) Physical Therapy Assessment Impairments Impairments Activity Tolerance,Functional Activities,Functional Mobility ,Pain,ROM,Soft Tissue Mobility ,Tone Goals Three Impairment Pt unable to visit her son due to low tolerance with time seated in car Power Equipment Mechanics Instructor Goal (LTG) Pt to tolerate sitting in car for 90 minutes at a time with no increase in pain to enable her to visit her son. LTG Duration 02/24/21 Improving (45 minutes) Two Impairment Pt poor standing and walking tolerance limits her ability to walk Power Equipment Mechanics Instructor Goal (LTG) Pt to tolerate walking the two mile [place] loop without increased pain LTG Duration 02/24/21 Improving (~1 mile) One Impairment Pt does not have an appropriate home exercise program Short Term Goal (STG) Pt to be independent and compliant with an appropriate HEP STG Duration 01/24/21 Assessment Summary Assessment Pt noting her back feeling like it has been loosening up. Tolerating treatment well, no complaints of pain or difficulty today. Physical Therapy Plan Frequency and Duration Frequency of Treatment 2x/Week Duration of Treatment Two months Plan of Care Start Date 12/25/20 Plan of Care End Date 02/24/21 Therapeutic Interventions Therapeutic Interventions Home Exercise Program,Manual Therapy,Neuromuscular Re- education,Patient/Caregiver Education,Self-Care/Home Management,Soft Tissue Mobilization,Therapeutic Activities,Therapeutic Exercises Modalities Cold Pack/Ice Massage,Electric Stimulation,Hot Packs, Ultrasound Next Visit Focus/Plan Next Note Type Treatment Note Next Visit Plan Assess HEP: flexibility, core and LE strengthening last tx. Next tx add ball roll at wall: Low back/glut. Continue per PT POC: core and Le strengthening increasing activity toelrance
--- NOTE | 2021-01-15 12:41 | PT.OTN ---
Current Diagnoses Stiffness of other specified joint, not elsewhere classified (01/15/21) Spinal stenosis, lumbar region with neurogenic claudication (01/15/21) Encounter for other orthopedic aftercare (01/15/21) Arthrodesis status (01/15/21) Physical Therapy Treatment Note PT-OP-A Visit Information Start: 10/26/20 17:45 Freq: Status: Active Protocol: Document 01/15/21 12:03 DCW (Rec: 01/15/21 12:41 DCW [id number]) Out-Patient Physical Therapy Visit Information Visit Information Visit Type Treatment Note Visit Start Time 12:03 Visit Stop Time 12:45 Total Visit Minutes 42 Visit Number 13 Number of VP OF MARKETING Visits 0 Evaluation Information Evaluation Date 10/26/20 PT-OP-B Current Condition Start: 10/26/20 17:45 Freq: Status: Active Protocol: Document 10/26/20 16:10 DCW (Rec: 10/26/20 17:55 DCW [id number]) Current Condition History of Current Condition Onset Date 07/22/20 Current Complaints s/p L3-4 Laminectomy/ decompression and posterolateral fusion History of Current Condition Pt is a 60 year old female presenting three months s/p L3 -4 laminectomy/decompression and posterolateral fusion. This is also 13 years s/p an L4-S1 lami/fusion. Pt notes her recovery so far is much better than her previous lami . Pt was previously seen at this clinic five years ago after a knee injury. 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 Following x-rays and a CT scan, pt was in the process of obtaining an MRI when she returned to her surgeon from 2007, who obtained an MRI and decided to go forward with her surgery. Since surgery, pt has been feeling better overall, but still has limited activity tolerance, feels her legs and core are weak, and she cannot sit or stand for any extended period of time. 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 PT-OP-C Subjective Start: 10/26/20 17:45 Freq: Status: Active Protocol: Document 01/15/21 12:03 DCW (Rec: 01/15/21 12:41 DCW [id number]) OP-PT Subjective Patient Comments Patient Comments Pt reports she is doing alright today, but she does have a pretty bad headache. PT-OP-E Functional Tests Start: 10/26/20 17:45 Freq: Status: Active Protocol: Document 12/25/20 12:25 DCW (Rec: 12/25/20 12:41 DCW [id number]) Functional Tests 6 Minute Walk Test Distance 1246' Device Used none PT-OP-K Range of Motion Start: 10/26/20 17:45 Freq: Status: Active Protocol: Document 12/25/20 12:25 DCW (Rec: 12/25/20 12:41 DCW [id number]) Lumbar Spine Range of Motion Lumbar Spine Active Degrees Testing Position Standing Flexion 52 Extension 18 Lateral Flexion Left 50 Lateral Flexion Right 48 Comments Lateral flexion measured in cm from floor to finger-tips PT-OP-M Strength Start: 10/26/20 17:45 Freq: Status: Active Protocol: Document 12/25/20 12:25 DCW (Rec: 12/25/20 12:41 DCW [id number]) Hip Strength Hip Manual Muscle Testing Right Flexion (L2) 4 Good Extension (S1) 4 Good Abduction 4 Good Adduction 4 Good External Rotation 4+ Good+ Internal Rotation 4+ Good+ Left Flexion (L2) 4 Good Extension (S1) 4 Good Abduction 4 Good Adduction 4 Good External Rotation 4+ Good+ Internal Rotation 4+ Good+ Knee Strength Knee Manual Muscle Testing Right Flexion (S2) 5 Normal Extension (L3) 5 Normal Left Flexion (S2) 5 Normal Extension (L3) 5 Normal PT-OP-Q Treatments Start: 10/26/20 17:45 Freq: Status: Active Protocol: Document 01/15/21 12:03 DCW (Rec: 01/15/21 12:41 DCW [id number]) Cardio Equipment Recumbent Elliptical ([employer]) Duration (Minutes) 6 Resistance 6 Seat Position 9 Gym Equipment Shuttle Recovery Unilateral Squats Resistance 37# Shuttle Recovery Platform Stable Reps/Time 2x10 Bilateral Squats Resistance 87# Shuttle Recovery Platform Stable Reps/Time x20 Therapeutic Exercises Supine Exercises Bridging Supine Exercise Name Bridging LTR Supine Exercise Name Blue T-ball Side bilateral Reps/Minutes 2x10 Comments range to tolerance Standing Exercises Side stepping Side bilateral Resistance Green Equipment Used T-band Reps/Minutes 15 ft x2 laps Comments cued upright posture, neutral pelvic alignment resisted shld ext Standing Exercise Name split stance, w/ R knee forward to maintain neutral pelvic alignment. Side bilateral Resistance Lv 3 Equipment Used T-band Reps/Minutes x10 Comments cued soft knee, neutral pelvis , tall posture, scap depress stab resisted row Side bilateral Resistance Lv 3 Equipment Used T-band Reps/Minutes x10 Comments cued soft knee, neutral pelvis , tall posture, scap depress stab Manual Therapy Treatment Soft Tissue Mobilization 2 Body Location B Piriformis 1 Body Location B Lumbar paraspinals PT-OP-T Assessment and Plan Start: 10/26/20 17:45 Freq: Status: Active Protocol: Document 01/15/21 12:03 DCW (Rec: 01/15/21 12:41 DCW [id number]) Physical Therapy Assessment Impairments Impairments Activity Tolerance,Functional Activities,Functional Mobility ,Pain,ROM,Soft Tissue Mobility ,Tone Goals Three Impairment Pt unable to visit her son due to low tolerance with time seated in car Trust Vault Clerk Goal (LTG) Pt to tolerate sitting in car for 90 minutes at a time with no increase in pain to enable her to visit her son. LTG Duration 02/24/21 Improving (45 minutes) Two Impairment Pt poor standing and walking tolerance limits her ability to walk Trust Vault Clerk Goal (LTG) Pt to tolerate walking the two mile [place] loop without increased pain LTG Duration 02/24/21 Improving (~1 mile) One Impairment Pt does not have an appropriate home exercise program Short Term Goal (STG) Pt to be independent and compliant with an appropriate HEP STG Duration 01/24/21 Assessment Summary Assessment Pt feeling much better overall , significantly less tone through low back. Physical Therapy Plan Frequency and Duration Frequency of Treatment 2x/Week Duration of Treatment Two months Plan of Care Start Date 12/25/20 Plan of Care End Date 02/24/21 Therapeutic Interventions Therapeutic Interventions Home Exercise Program,Manual Therapy,Neuromuscular Re- education,Patient/Caregiver Education,Self-Care/Home Management,Soft Tissue Mobilization,Therapeutic Activities,Therapeutic Exercises Modalities Cold Pack/Ice Massage,Electric Stimulation,Hot Packs, Ultrasound Next Visit Focus/Plan Next Note Type Treatment Note Next Visit Plan Assess HEP: flexibility, core and LE strengthening last tx. Next tx add ball roll at wall: Low back/glut. Continue per PT POC: core and Le strengthening increasing activity tolerance
--- NOTE | 2021-01-19 13:00 | PT-OP ANOTE ---
Pt cancelled early pm for same day appt, feeling ill.
--- NOTE | 2021-01-22 09:46 | PT.OTN ---
Current Diagnoses Stiffness of other specified joint, not elsewhere classified (01/22/21) Spinal stenosis, lumbar region with neurogenic claudication (01/22/21) Encounter for other orthopedic aftercare (01/22/21) Arthrodesis status (01/22/21) Physical Therapy Treatment Note PT-OP-A Visit Information Start: 10/26/20 17:45 Freq: Status: Active Protocol: Document 01/22/21 09:03 DCW (Rec: 01/22/21 09:46 DCW [id number]) Out-Patient Physical Therapy Visit Information Visit Information Visit Type Treatment Note Visit Start Time 09:03 Visit Stop Time 09:45 Total Visit Minutes 42 Visit Number 14 Number of INSTITUTIONAL ASSET MANAGER Visits 0 Evaluation Information Evaluation Date 10/26/20 PT-OP-B Current Condition Start: 10/26/20 17:45 Freq: Status: Active Protocol: Document 10/26/20 16:10 DCW (Rec: 10/26/20 17:55 DCW [id number]) Current Condition History of Current Condition Onset Date 07/22/20 Current Complaints s/p L3-4 Laminectomy/ decompression and posterolateral fusion History of Current Condition Pt is a 60 year old female presenting three months s/p L3 -4 laminectomy/decompression and posterolateral fusion. This is also 13 years s/p an L4-S1 lami/fusion. Pt notes her recovery so far is much better than her previous lami . Pt was previously seen at this clinic five years ago after a knee injury. 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 Following x-rays and a CT scan, pt was in the process of obtaining an MRI when she returned to her surgeon from 2007, who obtained an MRI and decided to go forward with her surgery. Since surgery, pt has been feeling better overall, but still has limited activity tolerance, feels her legs and core are weak, and she cannot sit or stand for any extended period of time. Pt would like to be able to get out walking to lose some of this quarantine weight I've gained, as well as tolerate standing so she can volunteer in local classrooms, and to be able to tolerate longer drives so she can visit her son, who lives in [place]. PT-OP-C Subjective Start: 10/26/20 17:45 Freq: Status: Active Protocol: Document 01/22/21 09:03 DCW (Rec: 01/22/21 09:46 DCW [id number]) OP-PT Subjective Patient Comments Patient Comments Pt notes she feels okay, but a little stressed today. PT-OP-E Functional Tests Start: 10/26/20 17:45 Freq: Status: Active Protocol: Document 12/25/20 12:25 DCW (Rec: 12/25/20 12:41 DCW [id number]) Functional Tests 6 Minute Walk Test Distance 1246' Device Used none PT-OP-K Range of Motion Start: 10/26/20 17:45 Freq: Status: Active Protocol: Document 12/25/20 12:25 DCW (Rec: 12/25/20 12:41 DCW [id number]) Lumbar Spine Range of Motion Lumbar Spine Active Degrees Testing Position Standing Flexion 52 Extension 18 Lateral Flexion Left 50 Lateral Flexion Right 48 Comments Lateral flexion measured in cm from floor to finger-tips PT-OP-M Strength Start: 10/26/20 17:45 Freq: Status: Active Protocol: Document 12/25/20 12:25 DCW (Rec: 12/25/20 12:41 DCW [id number]) Hip Strength Hip Manual Muscle Testing Right Flexion (L2) 4 Good Extension (S1) 4 Good Abduction 4 Good Adduction 4 Good External Rotation 4+ Good+ Internal Rotation 4+ Good+ Left Flexion (L2) 4 Good Extension (S1) 4 Good Abduction 4 Good Adduction 4 Good External Rotation 4+ Good+ Internal Rotation 4+ Good+ Knee Strength Knee Manual Muscle Testing Right Flexion (S2) 5 Normal Extension (L3) 5 Normal Left Flexion (S2) 5 Normal Extension (L3) 5 Normal PT-OP-Q Treatments Start: 10/26/20 17:45 Freq: Status: Active Protocol: Document 01/22/21 09:03 DCW (Rec: 01/22/21 09:46 DCW [id number]) Cardio Equipment Recumbent Stepper (Sci-Fit) Duration (Minutes) 6 Resistance 3 Seat Position 11 Gym Equipment Shuttle Recovery Unilateral Squats Resistance 37# Shuttle Recovery Platform Stable Reps/Time 2x10 Bilateral Squats Resistance 87# Shuttle Recovery Platform Stable Reps/Time x20 Therapeutic Exercises Supine Exercises Bridging Supine Exercise Name Bridging LTR Supine Exercise Name Blue T-ball Side bilateral Reps/Minutes 2x10 Comments range to tolerance Standing Exercises Side stepping Side bilateral Resistance Green Equipment Used T-band Reps/Minutes 15 ft x2 laps Comments cued upright posture, neutral pelvic alignment resisted shld ext Standing Exercise Name split stance, w/ R knee forward to maintain neutral pelvic alignment. Side bilateral Resistance Lv 3 Equipment Used T-band Reps/Minutes x10 Comments cued soft knee, neutral pelvis , tall posture, scap depress stab resisted row Side bilateral Resistance Lv 3 Equipment Used T-band Reps/Minutes x10 Comments cued soft knee, neutral pelvis , tall posture, scap depress stab Manual Therapy Treatment Soft Tissue Mobilization 2 Body Location B Piriformis 1 Body Location B Lumbar paraspinals PT-OP-T Assessment and Plan Start: 10/26/20 17:45 Freq: Status: Active Protocol: Document 01/22/21 09:03 DCW (Rec: 01/22/21 09:46 DCW [id number]) Physical Therapy Assessment Impairments Impairments Activity Tolerance,Functional Activities,Functional Mobility ,Pain,ROM,Soft Tissue Mobility ,Tone Goals Three Impairment Pt unable to visit her son due to low tolerance with time seated in car Senior Care Goal (LTG) Pt to tolerate sitting in car for 90 minutes at a time with no increase in pain to enable her to visit her son. LTG Duration 02/24/21 Improving (45 minutes) Two Impairment Pt poor standing and walking tolerance limits her ability to walk Senior Care Goal (LTG) Pt to tolerate walking the two mile [place] loop without increased pain LTG Duration 02/24/21 Improving (~1 mile) One Impairment Pt does not have an appropriate home exercise program Short Term Goal (STG) Pt to be independent and compliant with an appropriate HEP STG Duration 01/24/21 Assessment Summary Assessment Pt showing improved mobility, able to perform day-to-day functions with decreased difficulty. Physical Therapy Plan Frequency and Duration Frequency of Treatment 2x/Week Duration of Treatment Two months Plan of Care Start Date 12/25/20 Plan of Care End Date 02/24/21 Therapeutic Interventions Therapeutic Interventions Home Exercise Program,Manual Therapy,Neuromuscular Re- education,Patient/Caregiver Education,Self-Care/Home Management,Soft Tissue Mobilization,Therapeutic Activities,Therapeutic Exercises Modalities Cold Pack/Ice Massage,Electric Stimulation,Hot Packs, Ultrasound Next Visit Focus/Plan Next Note Type Treatment Note Next Visit Plan Assess HEP: flexibility, core and LE strengthening last tx. Next tx add ball roll at wall: Low back/glut. Continue per PT POC: core and Le strengthening increasing activity toelrance
--- NOTE | 2021-01-26 09:45 | PT-OP ANOTE ---
Pt cancelled today's pm appt at 939 due to having an active migraine.
--- NOTE | 2021-01-26 09:45 | PT-OP ANOTE ---
Pt cancelled this am for pm appt due to having an active migraine.
--- NOTE | 2021-01-29 10:30 | PT.OTN ---
Current Diagnoses Stiffness of other specified joint, not elsewhere classified (01/29/21) Spinal stenosis, lumbar region with neurogenic claudication (01/29/21) Encounter for other orthopedic aftercare (01/29/21) Arthrodesis status (01/29/21) Physical Therapy Treatment Note PT-OP-A Visit Information Start: 10/26/20 17:45 Freq: Status: Active Protocol: Document 01/29/21 09:45 DCW (Rec: 01/29/21 10:30 DCW [id number]) Out-Patient Physical Therapy Visit Information Visit Information Visit Type Treatment Note Visit Start Time 09:45 Visit Stop Time 10:30 Total Visit Minutes 45 Visit Number 15 Number of PHARMACY BILLING ADJUDICATOR Visits 0 Evaluation Information Evaluation Date 10/26/20 PT-OP-B Current Condition Start: 10/26/20 17:45 Freq: Status: Active Protocol: Document 10/26/20 16:10 DCW (Rec: 10/26/20 17:55 DCW [id number]) Current Condition History of Current Condition Onset Date 07/22/20 Current Complaints s/p L3-4 Laminectomy/ decompression and posterolateral fusion History of Current Condition Pt is a 60 year old female presenting three months s/p L3 -4 laminectomy/decompression and posterolateral fusion. This is also 13 years s/p an L4-S1 lami/fusion. Pt notes her recovery so far is much better than her previous lami . Pt was previously seen at this clinic five years ago after a knee injury. 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 Following x-rays and a CT scan, pt was in the process of obtaining an MRI when she returned to her surgeon from 2007, who obtained an MRI and decided to go forward with her surgery. Since surgery, pt has been feeling better overall, but still has limited activity tolerance, feels her legs and core are weak, and she cannot sit or stand for any extended period of time. 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 PT-OP-C Subjective Start: 10/26/20 17:45 Freq: Status: Active Protocol: Document 01/29/21 09:45 DCW (Rec: 01/29/21 10:30 DCW [id number]) OP-PT Subjective Patient Comments Patient Comments Pt had a very stressful week, mainly due to medical issues with her mother, who fell and broke her ankle earlier this week. PT-OP-E Functional Tests Start: 10/26/20 17:45 Freq: Status: Active Protocol: Document 12/25/20 12:25 DCW (Rec: 12/25/20 12:41 DCW [id number]) Functional Tests 6 Minute Walk Test Distance 1246' Device Used none PT-OP-K Range of Motion Start: 10/26/20 17:45 Freq: Status: Active Protocol: Document 12/25/20 12:25 DCW (Rec: 12/25/20 12:41 DCW [id number]) Lumbar Spine Range of Motion Lumbar Spine Active Degrees Testing Position Standing Flexion 52 Extension 18 Lateral Flexion Left 50 Lateral Flexion Right 48 Comments Lateral flexion measured in cm from floor to finger-tips PT-OP-M Strength Start: 10/26/20 17:45 Freq: Status: Active Protocol: Document 12/25/20 12:25 DCW (Rec: 12/25/20 12:41 DCW [id number]) Hip Strength Hip Manual Muscle Testing Right Flexion (L2) 4 Good Extension (S1) 4 Good Abduction 4 Good Adduction 4 Good External Rotation 4+ Good+ Internal Rotation 4+ Good+ Left Flexion (L2) 4 Good Extension (S1) 4 Good Abduction 4 Good Adduction 4 Good External Rotation 4+ Good+ Internal Rotation 4+ Good+ Knee Strength Knee Manual Muscle Testing Right Flexion (S2) 5 Normal Extension (L3) 5 Normal Left Flexion (S2) 5 Normal Extension (L3) 5 Normal PT-OP-Q Treatments Start: 10/26/20 17:45 Freq: Status: Active Protocol: Document 01/29/21 09:45 DCW (Rec: 01/29/21 10:30 DCW [id number]) Cardio Equipment Recumbent Elliptical ([employer]) Duration (Minutes) 6 Resistance 5 Seat Position 8 Gym Equipment Shuttle Recovery Unilateral Squats Resistance 37# Shuttle Recovery Platform Stable Reps/Time 2x10 Bilateral Squats Resistance 87# Shuttle Recovery Platform Stable Reps/Time x20 Therapeutic Exercises Supine Exercises Bridging Supine Exercise Name Bridging LTR Supine Exercise Name Blue T-ball Side bilateral Reps/Minutes 2x10 Comments range to tolerance Standing Exercises Side stepping Side bilateral Resistance Green Equipment Used T-band Reps/Minutes 15 ft x2 laps Comments cued upright posture, neutral pelvic alignment resisted shld ext Standing Exercise Name split stance, w/ R knee forward to maintain neutral pelvic alignment. Side bilateral Resistance Lv 3 Equipment Used T-band Reps/Minutes x10 Comments cued soft knee, neutral pelvis , tall posture, scap depress stab resisted row Side bilateral Resistance Lv 3 Equipment Used T-band Reps/Minutes x10 Comments cued soft knee, neutral pelvis , tall posture, scap depress stab Manual Therapy Treatment Soft Tissue Mobilization 2 Body Location B Piriformis 1 Body Location B Lumbar paraspinals PT-OP-T Assessment and Plan Start: 10/26/20 17:45 Freq: Status: Active Protocol: Document 01/29/21 09:45 DCW (Rec: 01/29/21 10:30 DCW [id number]) Physical Therapy Assessment Impairments Impairments Activity Tolerance,Functional Activities,Functional Mobility ,Pain,ROM,Soft Tissue Mobility ,Tone Goals Three Impairment Pt unable to visit her son due to low tolerance with time seated in car Penitentiary Goal (LTG) Pt to tolerate sitting in car for 90 minutes at a time with no increase in pain to enable her to visit her son. LTG Duration 02/24/21 Improving (45 minutes) Two Impairment Pt poor standing and walking tolerance limits her ability to walk Motor Vehicle Field Representative Goal (LTG) Pt to tolerate walking the two mile [place] loop without increased pain LTG Duration 02/24/21 Improving (~1 mile) One Impairment Pt does not have an appropriate home exercise program Short Term Goal (STG) Pt to be independent and compliant with an appropriate HEP STG Duration 01/24/21 Assessment Summary Assessment Pt showed some increased tightness along paraspinals today, possibly due to overall stress levels due to outside influences. Physical Therapy Plan Frequency and Duration Frequency of Treatment 2x/Week Duration of Treatment Two months Plan of Care Start Date 12/25/20 Plan of Care End Date 02/24/21 Therapeutic Interventions Therapeutic Interventions Home Exercise Program,Manual Therapy,Neuromuscular Re- education,Patient/Caregiver Education,Self-Care/Home Management,Soft Tissue Mobilization,Therapeutic Activities,Therapeutic Exercises Modalities Cold Pack/Ice Massage,Electric Stimulation,Hot Packs, Ultrasound Next Visit Focus/Plan Next Note Type Treatment Note Next Visit Plan Assess HEP: flexibility, core and LE strengthening last tx. Next tx add ball roll at wall: Low back/glut. Continue per PT POC: core and Le strengthening increasing activity toelrance
--- NOTE | 2021-02-02 12:45 | PT.OTN ---
Current Diagnoses Stiffness of other specified joint, not elsewhere classified (02/02/21) Spinal stenosis, lumbar region with neurogenic claudication (02/02/21) Encounter for other orthopedic aftercare (02/02/21) Arthrodesis status (02/02/21) Physical Therapy Treatment Note PT-OP-A Visit Information Start: 10/26/20 17:45 Freq: Status: Active Protocol: Document 02/02/21 12:02 DCW (Rec: 02/02/21 12:45 DCW [id number]) Out-Patient Physical Therapy Visit Information Visit Information Visit Type Treatment Note Visit Start Time 12:02 Visit Stop Time 12:45 Total Visit Minutes 43 Visit Number 16 Number of FLOOR PERSON Visits 0 Evaluation Information Evaluation Date 10/26/20 PT-OP-B Current Condition Start: 10/26/20 17:45 Freq: Status: Active Protocol: Document 10/26/20 16:10 DCW (Rec: 10/26/20 17:55 DCW [id number]) Current Condition History of Current Condition Onset Date 07/22/20 Current Complaints s/p L3-4 Laminectomy/ decompression and posterolateral fusion History of Current Condition Pt is a 60 year old female presenting three months s/p L3 -4 laminectomy/decompression and posterolateral fusion. This is also 13 years s/p an L4-S1 lami/fusion. Pt notes her recovery so far is much better than her previous lami . Pt was previously seen at this clinic five years ago after a knee injury. 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 Following x-rays and a CT scan, pt was in the process of obtaining an MRI when she returned to her surgeon from 2007, who obtained an MRI and decided to go forward with her surgery. Since surgery, pt has been feeling better overall, but still has limited activity tolerance, feels her legs and core are weak, and she cannot sit or stand for any extended period of time. 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 PT-OP-C Subjective Start: 10/26/20 17:45 Freq: Status: Active Protocol: Document 02/02/21 12:02 DCW (Rec: 02/02/21 12:45 DCW [id number]) OP-PT Subjective Patient Comments Patient Comments Pt still very stressed out with her mother's health problems. PT-OP-E Functional Tests Start: 10/26/20 17:45 Freq: Status: Active Protocol: Document 12/25/20 12:25 DCW (Rec: 12/25/20 12:41 DCW [id number]) Functional Tests 6 Minute Walk Test Distance 1246' Device Used none PT-OP-K Range of Motion Start: 10/26/20 17:45 Freq: Status: Active Protocol: Document 12/25/20 12:25 DCW (Rec: 12/25/20 12:41 DCW [id number]) Lumbar Spine Range of Motion Lumbar Spine Active Degrees Testing Position Standing Flexion 52 Extension 18 Lateral Flexion Left 50 Lateral Flexion Right 48 Comments Lateral flexion measured in cm from floor to finger-tips PT-OP-M Strength Start: 10/26/20 17:45 Freq: Status: Active Protocol: Document 12/25/20 12:25 DCW (Rec: 12/25/20 12:41 DCW [id number]) Hip Strength Hip Manual Muscle Testing Right Flexion (L2) 4 Good Extension (S1) 4 Good Abduction 4 Good Adduction 4 Good External Rotation 4+ Good+ Internal Rotation 4+ Good+ Left Flexion (L2) 4 Good Extension (S1) 4 Good Abduction 4 Good Adduction 4 Good External Rotation 4+ Good+ Internal Rotation 4+ Good+ Knee Strength Knee Manual Muscle Testing Right Flexion (S2) 5 Normal Extension (L3) 5 Normal Left Flexion (S2) 5 Normal Extension (L3) 5 Normal PT-OP-Q Treatments Start: 10/26/20 17:45 Freq: Status: Active Protocol: Document 02/02/21 12:02 DCW (Rec: 02/02/21 12:45 DCW [id number]) Cardio Equipment Recumbent Elliptical ([employer]) Duration (Minutes) 6 Resistance 5 Seat Position 8 Gym Equipment Shuttle Recovery Unilateral Squats Resistance 37# Shuttle Recovery Platform Stable Reps/Time 2x10 Bilateral Squats Resistance 87# Shuttle Recovery Platform Stable Reps/Time x20 Therapeutic Exercises Supine Exercises LTR Supine Exercise Name Blue T-ball Side bilateral Reps/Minutes 2x10 Comments range to tolerance Standing Exercises Side stepping Side bilateral Resistance Green Equipment Used T-band Reps/Minutes 15 ft x2 laps Comments cued upright posture, neutral pelvic alignment resisted shld ext Standing Exercise Name split stance, w/ R knee forward to maintain neutral pelvic alignment. Side bilateral Resistance Lv 3 Equipment Used T-band Reps/Minutes x10 Comments cued soft knee, neutral pelvis , tall posture, scap depress stab resisted row Side bilateral Resistance Lv 3 Equipment Used T-band Reps/Minutes x10 Comments cued soft knee, neutral pelvis , tall posture, scap depress stab Manual Therapy Treatment Soft Tissue Mobilization 2 Body Location B Piriformis 1 Body Location B Lumbar paraspinals PT-OP-T Assessment and Plan Start: 10/26/20 17:45 Freq: Status: Active Protocol: Document 02/02/21 12:02 DCW (Rec: 02/02/21 12:45 DCW [id number]) Physical Therapy Assessment Impairments Impairments Activity Tolerance,Functional Activities,Functional Mobility ,Pain,ROM,Soft Tissue Mobility ,Tone Goals Three Impairment Pt unable to visit her son due to low tolerance with time seated in car Automobile Salesman Goal (LTG) Pt to tolerate sitting in car for 90 minutes at a time with no increase in pain to enable her to visit her son. LTG Duration 02/24/21 Improving (45 minutes) Two Impairment Pt poor standing and walking tolerance limits her ability to walk Care Home Goal (LTG) Pt to tolerate walking the two mile [place] loop without increased pain LTG Duration 02/24/21 Improving (~1 mile) One Impairment Pt does not have an appropriate home exercise program Short Term Goal (STG) Pt to be independent and compliant with an appropriate HEP STG Duration 01/24/21 Assessment Summary Assessment Pt back tone better today, moving better, interested in trying to get into a gym and slowly transition to independent HEP. Physical Therapy Plan Frequency and Duration Frequency of Treatment 2x/Week Duration of Treatment Two months Plan of Care Start Date 12/25/20 Plan of Care End Date 02/24/21 Therapeutic Interventions Therapeutic Interventions Home Exercise Program,Manual Therapy,Neuromuscular Re- education,Patient/Caregiver Education,Self-Care/Home Management,Soft Tissue Mobilization,Therapeutic Activities,Therapeutic Exercises Modalities Cold Pack/Ice Massage,Electric Stimulation,Hot Packs, Ultrasound Next Visit Focus/Plan Next Note Type Treatment Note Next Visit Plan Assess HEP: flexibility, core and LE strengthening last tx. Next tx add ball roll at wall: Low back/glut. Continue per PT POC: core and Le strengthening increasing activity toelrance
--- NOTE | 2021-02-05 12:02 | PT.OTN ---
Current Diagnoses Stiffness of other specified joint, not elsewhere classified (02/05/21) Spinal stenosis, lumbar region with neurogenic claudication (02/05/21) Encounter for other orthopedic aftercare (02/05/21) Arthrodesis status (02/05/21) Physical Therapy Treatment Note PT-OP-A Visit Information Start: 10/26/20 17:45 Freq: Status: Active Protocol: Document 02/05/21 11:21 DCW (Rec: 02/05/21 12:02 DCW [id number]) Out-Patient Physical Therapy Visit Information Visit Information Visit Type Treatment Note Visit Start Time Visit Stop Time 12:00 Total Visit Minutes 39 Visit Number 17 Number of MEDICAL INSURANCE CODING SPECIALIST Visits 0 Evaluation Information Evaluation Date 10/26/20 PT-OP-B Current Condition Start: 10/26/20 17:45 Freq: Status: Active Protocol: Document 10/26/20 16:10 DCW (Rec: 10/26/20 17:55 DCW [id number]) Current Condition History of Current Condition Onset Date 07/22/20 Current Complaints s/p L3-4 Laminectomy/ decompression and posterolateral fusion History of Current Condition Pt is a 60 year old female presenting three months s/p L3 -4 laminectomy/decompression and posterolateral fusion. This is also 13 years s/p an L4-S1 lami/fusion. Pt notes her recovery so far is much better than her previous lami . Pt was previously seen at this clinic five years ago after a knee injury. 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 Following x-rays and a CT scan, pt was in the process of obtaining an MRI when she returned to her surgeon from 2007, who obtained an MRI and decided to go forward with her surgery. Since surgery, pt has been feeling better overall, but still has limited activity tolerance, feels her legs and core are weak, and she cannot sit or stand for any extended period of time. Pt would like to be able to get out walking to lose some of this quarantine weight I've gained, as well as tolerate standing so she can volunteer in local classrooms, and to be able to tolerate longer drives so she can visit her son, who lives in [place]. PT-OP-C Subjective Start: 10/26/20 17:45 Freq: Status: Active Protocol: Document 02/05/21 11:21 DCW (Rec: 02/05/21 12:02 DCW [id number]) OP-PT Subjective Patient Comments Patient Comments Pt feeling fairly good overall today, although still pretty stressed out with her mom's ankle surgery today. PT-OP-E Functional Tests Start: 10/26/20 17:45 Freq: Status: Active Protocol: Document 12/25/20 12:25 DCW (Rec: 12/25/20 12:41 DCW [id number]) Functional Tests 6 Minute Walk Test Distance 1246' Device Used none PT-OP-K Range of Motion Start: 10/26/20 17:45 Freq: Status: Active Protocol: Document 12/25/20 12:25 DCW (Rec: 12/25/20 12:41 DCW [id number]) Lumbar Spine Range of Motion Lumbar Spine Active Degrees Testing Position Standing Flexion 52 Extension 18 Lateral Flexion Left 50 Lateral Flexion Right 48 Comments Lateral flexion measured in cm from floor to finger-tips PT-OP-M Strength Start: 10/26/20 17:45 Freq: Status: Active Protocol: Document 12/25/20 12:25 DCW (Rec: 12/25/20 12:41 DCW [id number]) Hip Strength Hip Manual Muscle Testing Right Flexion (L2) 4 Good Extension (S1) 4 Good Abduction 4 Good Adduction 4 Good External Rotation 4+ Good+ Internal Rotation 4+ Good+ Left Flexion (L2) 4 Good Extension (S1) 4 Good Abduction 4 Good Adduction 4 Good External Rotation 4+ Good+ Internal Rotation 4+ Good+ Knee Strength Knee Manual Muscle Testing Right Flexion (S2) 5 Normal Extension (L3) 5 Normal Left Flexion (S2) 5 Normal Extension (L3) 5 Normal PT-OP-Q Treatments Start: 10/26/20 17:45 Freq: Status: Active Protocol: Document 02/05/21 11:21 DCW (Rec: 02/05/21 12:02 DCW [id number]) Cardio Equipment Recumbent Elliptical ([employer]) Duration (Minutes) 6 Resistance 5 Seat Position 8 Gym Equipment Shuttle Recovery Unilateral Squats Resistance 50# Shuttle Recovery Platform Stable Reps/Time 2x10 Bilateral Squats Resistance 87# Shuttle Recovery Platform Stable Reps/Time x20 Therapeutic Exercises Supine Exercises LTR Supine Exercise Name Blue T-ball Side bilateral Reps/Minutes 2x10 Comments range to tolerance Standing Exercises Side stepping Side bilateral Resistance Green Equipment Used T-band Reps/Minutes 15 ft x2 laps Comments cued upright posture, neutral pelvic alignment resisted shld ext Standing Exercise Name split stance, w/ R knee forward to maintain neutral pelvic alignment. Side bilateral Resistance Lv 3 Equipment Used T-band Reps/Minutes x10 Comments cued soft knee, neutral pelvis , tall posture, scap depress stab resisted row Side bilateral Resistance Lv 3 Equipment Used T-band Reps/Minutes x10 Comments cued soft knee, neutral pelvis , tall posture, scap depress stab Manual Therapy Treatment Soft Tissue Mobilization 2 Body Location B Piriformis 1 Body Location B Lumbar paraspinals PT-OP-T Assessment and Plan Start: 10/26/20 17:45 Freq: Status: Active Protocol: Document 02/05/21 11:21 DCW (Rec: 02/05/21 12:02 DCW [id number]) Physical Therapy Assessment Impairments Impairments Activity Tolerance,Functional Activities,Functional Mobility ,Pain,ROM,Soft Tissue Mobility ,Tone Goals Three Impairment Pt unable to visit her son due to low tolerance with time seated in car Long-Term Goal (LTG) Pt to tolerate sitting in car for 90 minutes at a time with no increase in pain to enable her to visit her son. LTG Duration 02/24/21 Improving (45 minutes) Two Impairment Pt poor standing and walking tolerance limits her ability to walk Long-Term Goal (LTG) Pt to tolerate walking the two mile [place] loop without increased pain LTG Duration 02/24/21 Improving (~1 mile) One Impairment Pt does not have an appropriate home exercise program Short Term Goal (STG) Pt to be independent and compliant with an appropriate HEP STG Duration 01/24/21 Assessment Summary Assessment Pt feeling well overall today, improving mobility, activity tolerance, and pain control. Physical Therapy Plan Frequency and Duration Frequency of Treatment 2x/Week Duration of Treatment Two months Plan of Care Start Date 12/25/20 Plan of Care End Date 02/24/21 Therapeutic Interventions Therapeutic Interventions Home Exercise Program,Manual Therapy,Neuromuscular Re- education,Patient/Caregiver Education,Self-Care/Home Management,Soft Tissue Mobilization,Therapeutic Activities,Therapeutic Exercises Modalities Cold Pack/Ice Massage,Electric Stimulation,Hot Packs, Ultrasound Next Visit Focus/Plan Next Note Type Treatment Note Next Visit Plan Assess HEP: flexibility, core and LE strengthening last tx. Next tx add ball roll at wall: Low back/glut. Continue per PT POC: core and Le strengthening increasing activity [place]elrance
--- NOTE | 2021-03-12 12:22 | PT.OPDS ---
Current Diagnoses Stiffness of other specified joint, not elsewhere classified (02/05/21) Spinal stenosis, lumbar region with neurogenic claudication (02/05/21) Encounter for other orthopedic aftercare (02/05/21) Arthrodesis status (02/05/21) Visit Care Team Role Provider Type Puma Mendez MD Primary Care Provider Non-Staff Specialty: Family Practice Address: [address] [place] [address], [address], [place], [address] Email: Sherine Santos PA-C Attending Provider Non-Staff Referring Provider Specialty: General Surgery Address: [address] [place] [address] [address], [place], [address] Email: Visit Number Visit Number 17 Discharge Summary PT-OP-B Current Condition Start: 10/26/20 17:45 Freq: Status: Active Protocol: Document 10/26/20 16:10 DCW (Rec: 10/26/20 17:55 DCW [id number]) Current Condition History of Current Condition Onset Date 07/22/20 Current Complaints s/p L3-4 Laminectomy/ decompression and posterolateral fusion History of Current Condition Pt is a 60 year old female presenting three months s/p L3 -4 laminectomy/decompression and posterolateral fusion. This is also 13 years s/p an L4-S1 lami/fusion. Pt notes her recovery so far is much better than her previous lami . Pt was previously seen at this clinic five years ago after a knee injury. 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 Following x-rays and a CT scan, pt was in the process of obtaining an MRI when she returned to her surgeon from 2007, who obtained an MRI and decided to go forward with her surgery. Since surgery, pt has been feeling better overall, but still has limited activity tolerance, feels her legs and core are weak, and she cannot sit or stand for any extended period of time. 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 PT-OP-C Subjective Start: 10/26/20 17:45 Freq: Status: Active Protocol: Document 02/05/21 11:21 DCW (Rec: 02/05/21 12:02 DCW [id number]) OP-PT Subjective Patient Comments Patient Comments Pt feeling fairly good overall today, although still pretty stressed out with her mom's ankle surgery today. PT-OP-E Functional Tests Start: 10/26/20 17:45 Freq: Status: Active Protocol: Document 12/25/20 12:25 DCW (Rec: 12/25/20 12:41 DCW [id number]) Functional Tests 6 Minute Walk Test Distance 1246' Device Used none PT-OP-K Range of Motion Start: 10/26/20 17:45 Freq: Status: Active Protocol: Document 12/25/20 12:25 DCW (Rec: 12/25/20 12:41 DCW [id number]) Lumbar Spine Range of Motion Lumbar Spine Active Degrees Testing Position Standing Flexion 52 Extension 18 Lateral Flexion Left 50 Lateral Flexion Right 48 Comments Lateral flexion measured in cm from floor to finger-tips PT-OP-M Strength Start: 10/26/20 17:45 Freq: Status: Active Protocol: Document 12/25/20 12:25 DCW (Rec: 12/25/20 12:41 DCW [id number]) Hip Strength Hip Manual Muscle Testing Right Flexion (L2) 4 Good Extension (S1) 4 Good Abduction 4 Good Adduction 4 Good External Rotation 4+ Good+ Internal Rotation 4+ Good+ Left Flexion (L2) 4 Good Extension (S1) 4 Good Abduction 4 Good Adduction 4 Good External Rotation 4+ Good+ Internal Rotation 4+ Good+ Knee Strength Knee Manual Muscle Testing Right Flexion (S2) 5 Normal Extension (L3) 5 Normal Left Flexion (S2) 5 Normal Extension (L3) 5 Normal PT-OP-T Assessment and Plan Start: 10/26/20 17:45 Freq: Status: Active Protocol: Document 03/12/21 12:19 DCW (Rec: 03/12/21 12:22 DCW [id number]) Physical Therapy Assessment Assessment Summary Assessment Pt has cancelled on no-shown to majority of recent appointments, has now not been seen for more than one month. Today was pt's last scheduled visit, and was planning to discharge today anyway. Pt did not show for today's visit, and will be discharged at this time. Pt will require a new referral in order to return to skilled therapy.
== END 2021-03-15 08:57 | disposition home or self-care (01) ==
LOC: PHYS 11:15
PROVIDERS: PCP Family Medicine; Referring Provider Physician Assistant Surgical; Visit Provider Physician Assistant Surgical
DX: M48.062 Spinal stenosis, lumbar region with neurogenic claudication (principal); Z98.1 Arthrodesis status; Z47.89 Encounter for other orthopedic aftercare; M25.69 Stiffness of other specified joint, not elsewhere classified
CPT/HCPCS: 97110; 97140; 97161

== ENCOUNTER → 2025-03-20 15:37 | Outpatient (CLI) | payer MEDICARE, SELFPAY ==
[2025-03-20 16:33] LABS: Add Manual Diff / Slide Review NO; Hematocrit 36.8 % (36-46); Hemoglobin 12.5 g/dL (12.0-16.0); Lymphocytes Absolute Auto 1200 /uL (1100-4500); Mean Corpuscular HGB Conc 33.9 % (30-36); Mean Corpuscular Hemoglobin 29.6 PG (26-34); Mean Corpuscular Volume 87.4 fL (80-100); Platelet Count 292 X10^3/uL (150-400)
[2025-03-20 16:59] LABS: Alanine Aminotransferase 13 IU/L (<35); Albumin 4.2 g/dL (3.5-5.0); Albumin Globulin Ratio 1.4 (1.0-2.8); Alkaline Phosphatase 78 U/L (38-126); Blood Urea Nitrogen 16 mg/dL (7-17); Calcium 9.0 mg/dL (8.4-10.2); Carbon Dioxide 25 mmol/L (22-32); Chloride 96 mmol/L (98-107); Estimated Glomerular Filt Rate > 60 mL/min (>60); Globulin 2.9 g/dL (1.7-4.1); Glucose 87 mg/dL (70-99); HEMOLYSIS < 15 (0-50); Potassium 4.7 mmol/L (3.4-5.1); Sodium 129 mmol/L (137-145); Total Protein 7.1 g/dL (6.3-8.2)
[2025-03-20 17:26] LABS: Thyroid Stimulating Hormone 1.78 uIU/mL (0.47-4.68)
== END ==
PROVIDERS: PCP Family Medicine; Referring Provider Family Medicine; Visit Provider Family Medicine
DX: R00.2 Palpitations (principal); R10.11 Right upper quadrant pain; R19.7 Diarrhea, unspecified; R61 Generalized hyperhidrosis
CPT/HCPCS: 36415; 80053; 84443; 85025